=== PATIENT | female | born 1930 | race Hispanic/Latino ===

== ENCOUNTER 2017-04-22 14:51 | Inpatient (IN) | payer MEDICARE, BC ==
[2017-04-22 14:52] VITALS: PULSE 140; BMI 23.1
[2017-04-22] MEDS ORDERED: Sodium Chloride 0.9% 1,000 ML IV ONE (15:32)
--- NOTE | 2017-04-22 15:35 | C.PDOC ---
History Of Present Illness Patient is a 86 year old female, with past medical history of COPD, presents to Emergency Department for evaluation of increased congestion, cough, and yellow sputum for the past week. (+)post nasal drip. Pt uses O2 at home, mostly at night time. Pt also complaints of nausea, loss of appetite, and generalized weakness. Otherwise, denies chest pain, palpitations, fever, chills, abdominal pain, vomiting, diarrhea, headache, dizziness, lower extremity pain/swelling, or any other associated symptoms at this time. Time Seen by Provider: 04/22/17 15:24 Chief Complaint (Nursing): Shortness Of Breath History Per: Patient History/Exam Limitations: no limitations Onset/Duration Of Symptoms: Days (1 week) Current Symptoms Are (Timing): Still Present Exacerbating Factor(s): Coughing Associated Symptoms: denies: Fever, Chills, Chest Pain, Bloody Cough, Heart Racing, Leg/Calf Pain, Ankle/Leg Swelling, Dizziness, Light-headedness, Anxiety , Tingling In Hands Or Face, Musle Spasms In Hands Or Feet Recent travel outside of the [place]: No Additional History Per: Patient Past Medical History Reviewed: Historical Data, Nursing Documentation, Vital Signs Vital Signs: Last Vital Signs Temp 97.8 F 04/22/17 15:28 Pulse 58 L 04/22/17 15:28 Resp 24 04/22/17 16:50 BP 187/101 H 04/22/17 15:28 Pulse Ox 97 04/22/17 17:11 - Medical History PMH: Arthritis, COPD, Crohn's Disease, HTN, Hypercholesterolemia, Hypothyroidism , Obstructive Bowel, Chronic Kidney Disease Surgical History: Appendectomy, Cholecystectomy - [facility] Procedures FLUOROSCOPY OF LEFT JUGULAR VEINS, GUIDANCE (05/31/15) GAIT TRAINING/FUNCTIONAL AMBULATION TREATMENT (06/08/15) HOME MANAGEMENT TREATMENT (06/08/15) INSERT INFUSION DEV IN L INT JUGULAR VEIN, PERC (05/31/15) PERFORMANCE OF URINARY FILTRATION, SINGLE (05/31/15) THERAPEUTIC EXERCISE TREATMENT OF MUSCULOSK WHOLE (06/08/15) ULTRASONOGRAPHY OF LEFT JUGULAR VEINS, GUIDANCE (05/31/15) Family History: States: Unknown Family Hx - Social History Hx Tobacco Use: Yes (quit 30 years ago, 20-year history) Hx Alcohol Use: No Hx Substance Use: No - Immunization History Hx Tetanus Toxoid Vaccination: No Hx Influenza Vaccination: Yes (2013) Hx Pneumococcal Vaccination: No Review Of Systems Except As Marked, All Systems Reviewed And Found Negative. Constitutional: Positive for: Weakness. Negative for: Fever, Chills ENT: Positive for: Nose Congestion, Other (post nasal drip) Cardiovascular: Negative for: Chest Pain, Palpitations, Edema, Light Headedness Respiratory: Positive for: Cough, Shortness of Breath, Sputum Gastrointestinal: Positive for: Nausea. Negative for: Vomiting, Abdominal Pain , Diarrhea, Constipation Genitourinary: Negative for: Dysuria, Frequency, Hematuria Neurological: Negative for: Weakness, Numbness, Headache, Dizziness Physical Exam - Physical Exam Appears: Non-toxic, No Acute Distress Skin: Normal Color, Warm, Dry Head: Atraumatic, Normacephalic Eye(s): bilateral: Normal Inspection Nose: Normal Oral Mucosa: Moist Neck: Normal ROM, Supple Chest: Symmetrical Cardiovascular: Rhythm Regular, No Murmur Respiratory: Normal Breath Sounds, No Rales, No Rhonchi, No Wheezing Gastrointestinal/Abdominal: Soft, No Tenderness, No Distention, No Guarding, No Rebound Back: No CVA Tenderness Extremity: Normal ROM, No Pedal Edema Neurological/Psych: Oriented x3, Normal Speech, Normal Cognition ED Course And Treatment - Laboratory Results Result Diagrams: 04/22/17 16:47 04/22/17 16:47 Lab Interpretation: Abnormal (WBC 13.7, Na 117, Cl 83, normal BUN Cr) ECG: Interpreted By De ECG Rhythm: Sinus Rhythm (with sinus arrhythmia and left axis deviation, Anterior and inferior infarcts) ECG Interpretation: Abnormal O2 Sat by Pulse Oximetry: 97 (RA) Pulse Ox Interpretation: Normal - Radiology CXR: Interpreted by De CXR Interpretation: Yes: No Acute Disease, COPD Reevaluation Time: 17:11 Reassessment Condition: Unchanged - Physician Consult Information Time Consulting Physician Contacted: 17:11 Physician Contacted: Brodie Chong Outcome Of Conversation: Patient to be admitted for sodium replacement. Medical Decision Making Medical Decision Making: Blood work, CXR, EKG ordered and reviewed. Patient was given IV fluids. Disposition - Disposition Disposition: HOSPITALIZED Disposition Time: 17:33 Condition: FAIR - Clinical Impression Clinical Impression: Hyponatremia - Scribe Statement The provider has reviewed the documentation as recorded by the David Velazquez All medical record entries made by the Scribe were at my direction and personally dictated by me. I have reviewed the chart and agree that the record accurately reflects my personal performance of the history, physical exam, medical decision making, and the department course for this patient. I have also personally directed, reviewed, and agree with the discharge instructions and disposition.
[2017-04-22 16:50] LABS: BASO # 0.1 K/uL (0.0-0.2); BASO % 0.6 % (0.0-2.0); EOS # 0.1 K/uL (0.0-0.7); EOS % 0.5 % (0.0-4.0); HEMATOCRIT 34.1 % (34.0-47.0); LYMPH # 1.1 K/uL (1.0-4.3); MEAN CELL VOLUME 85.7 fL (81.0-99.0); MEAN CORPUSCULAR HEMOGLOBIN 28.6 pg (27.0-31.0); MEAN CORPUSCULAR HGB CONC 33.4 g/dL (33.0-37.0); MEAN PLATELET VOLUME 7.8 fL (7.2-11.7); MONO # 0.8 K/uL (0.0-0.8); MONO % 5.6 % (0.0-10.0); NRBC % 0.1 % (0.0-2.0); PLATELET COUNT 422 K/uL (130-400); RED CELL DISTRIBUTION WIDTH 14.9 % (11.5-14.5); WHITE BLOOD COUNT 13.7 K/uL (4.8-10.8)
[2017-04-22 17:00] LABS: CHLORIDE 83 mmol/L (98-107)
[2017-04-22 17:01] LABS: POTASSIUM 4.2 mmol/L (3.6-5.2)
[2017-04-22 17:03] LABS: ALB/GLOB RATIO 1.3 (1.0-2.1); AST/SGOT 23 U/L (14-36); BILIRUBIN,TOTAL 0.6 mg/dL (0.2-1.3); CARBON DIOXIDE 22 mmol/L (22-30); GFR AFRICAN-AMERICAN > 60; TOTAL PROTEIN 7.4 g/dL (6.3-8.3)
[2017-04-22 17:04] LABS: ALKALINE PHOSPHATASE 95 U/L (38-126); ALT/SGPT 24 U/L (9-52); BLOOD UREA NITROGEN 17 mg/dL (7-17); CALCIUM 8.9 mg/dl (8.6-10.4); GLUCOSE,RANDOM 89 mg/dL (65-105)
[2017-04-22 17:07] LABS: SODIUM 117 mmol/L (132-148)
--- NOTE | 2017-04-22 17:59 | RAD ---
PROCEDURE: CHEST RADIOGRAPH, 1 VIEW HISTORY: SOB COMPARISON: Comparison made with chest radiograph dated 05/21/2013 FINDINGS: LUNGS: No acute consolidation. Mild biapical pleural thickening PLEURA: No pneumothorax or pleural fluid seen. CARDIOVASCULAR: Cardiomegaly. OSSEOUS STRUCTURES: No significant abnormalities. VISUALIZED UPPER ABDOMEN: Normal. OTHER FINDINGS: None. IMPRESSION: No acute consolidation. Cardiomegaly.
[2017-04-22 18:46] LABS: LARGE PLATELETS PRESENT; NEUTROPHIL 84 % (50-75); TOTAL CELLS COUNTED 100
[2017-04-22] MEDS ORDERED: Sodium Chloride 0.9% 1,000 ML IV SCH (22:15)
--- NOTE | 2017-04-22 22:57 | CP.PCM.HP ---
History of Present Illness - History of Present Illness History of Present Illness: Patient is a 86 year old female, with past medical history of COPD, presents to Emergency Department for evaluation of increased congestion, cough, and yellow sputum for the past week. (+)post nasal drip. Pt uses O2 at home, mostly at night time. Pt also complaints of nausea, loss of appetite, and generalized weakness. Otherwise, denies chest pain, palpitations, fever, chills, abdominal pain, vomiting, diarrhea, headache, dizziness, lower extremity pain/swelling, or any other associated symptoms at this time. Present on Admission - Present on Admission Any Indicators Present on Admission: No Past Patient History - Past Medical History & Family History Past Medical History?: Yes - Past Social History Smoking Status: Former Smoker - CARDIAC Hx Hypercholesterolemia: Yes Hx Hypertension: Yes - PULMONARY Hx Chronic Obstructive Pulmonary Disease (COPD): Yes - NEUROLOGICAL Hx Neurological Disorder: No - HEENT Hx HEENT Problems: No - RENAL Hx Chronic Kidney Disease: Yes - ENDOCRINE/METABOLIC Hx Hypothyroidism: Yes - HEMATOLOGICAL/ONCOLOGICAL Hx Blood Disorders: No - INTEGUMENTARY Hx Dermatological Problems: No - MUSCULOSKELETAL/RHEUMATOLOGICAL Hx Arthritis: Yes - GASTROINTESTINAL Hx Crohn's Disease: Yes - GENITOURINARY/GYNECOLOGICAL Hx Genitourinary Disorders: No - PSYCHIATRIC Hx Substance Use: No - SURGICAL HISTORY Hx Appendectomy: Yes Hx Cholecystectomy: Yes - ANESTHESIA Hx Anesthesia: Yes Hx Anesthesia Reactions: No Hx Malignant Hyperthermia: No Meds Allergies/Adverse Reactions: Allergies Allergy/AdvReac Type Severity Reaction Status Date / Time No Known Allergies Allergy Verified 04/22/17 15:32 Results - Vital Signs Recent Vital Signs: Last Vital Signs Temp 98.1 F 04/22/17 19:30 Pulse 64 04/22/17 21:45 Resp 20 04/22/17 21:45 BP 138/77 04/22/17 21:45 Pulse Ox 97 04/22/17 21:45 - Labs Result Diagrams: 04/23/17 07:12 04/23/17 16:55 Labs: Laboratory Results - last 24 hr 04/22/17 04/22/17 16:47 16:47 WBC 13.7 H RBC 3.98 Hgb 11.4 Hct 34.1 MCV 85.7 D MCH 28.6 MCHC 33.4 RDW 14.9 H Plt Count 422 H MPV 7.8 Neut % (Auto) 85.3 H Lymph % (Auto) 8.0 L Walton % (Auto) 5.6 Eos % (Auto) 0.5 Baso % (Auto) 0.6 Neut # 11.7 H Lymph # 1.1 Walton # 0.8 Eos # 0.1 Baso # 0.1 Neutrophils % (Manual) 84 H Lymphocytes % (Manual) 10 L Monocytes % (Manual) 6 Platelet Estimate Slightly increased H Large Platelets Present Sodium 117 L* Potassium 4.2 Chloride 83 L Carbon Dioxide 22 Anion Gap 16 BUN 17 Creatinine 0.8 Est GFR ( Amer) > 60 Est GFR (Non-Af Amer) > 60 Random Glucose 89 Calcium 8.9 Total Bilirubin 0.6 AST 23 ALT 24 Alkaline Phosphatase 95 Troponin I < 0.0120 NT-Pro-B Natriuret Pep 934 H Total Protein 7.4 Albumin 4.1 Globulin 3.3 Albumin/Globulin Ratio 1.3
[2017-04-23] MEDS: Levothyroxine 50 MCG TAB PO SCH (05:33)
[2017-04-23 07:19] LABS: HEMATOCRIT 30.9 % (34.0-47.0); MEAN CELL VOLUME 86.2 fL (81.0-99.0); MEAN CORPUSCULAR HEMOGLOBIN 29.2 pg (27.0-31.0); MEAN CORPUSCULAR HGB CONC 33.9 g/dL (33.0-37.0); MEAN PLATELET VOLUME 7.8 fL (7.2-11.7); RED CELL DISTRIBUTION WIDTH 14.7 % (11.5-14.5); WHITE BLOOD COUNT 11.2 K/uL (4.8-10.8)
[2017-04-23 08:01] LABS: CHLORIDE 86 mmol/L (98-107); POTASSIUM 3.8 mmol/L (3.6-5.2)
[2017-04-23 08:04] LABS: BLOOD UREA NITROGEN 14 mg/dL (7-17); CARBON DIOXIDE 24 mmol/L (22-30); GFR AFRICAN-AMERICAN > 60; GLUCOSE,RANDOM 84 mg/dL (65-105)
[2017-04-23 08:05] LABS: CALCIUM 8.1 mg/dl (8.6-10.4)
[2017-04-23 08:08] LABS: SODIUM 118 mmol/L (132-148)
[2017-04-23] MEDS: Enoxaparin 40 mg Syringe SC SCH (09:20)
[2017-04-23] MEDS: Pantoprazole 40 mg EC Tab PO SCH (09:21)
[2017-04-23] MEDS: oxyCODONE 5 mg Immediate Release Tab PO PRN ×2 (11:07→17:32)
[2017-04-23] MEDS: Sodium Chloride 0.9% 1,000 ML IV SCH ×2 (11:08→19:16)
[2017-04-23 11:59] LABS: URIC ACID 5.2 mg/dL (2.2-7.5)
[2017-04-23 12:31] LABS: THYROID STIMULATING HORMONE 11.8 mIU/L (0.46-4.68)
[2017-04-23 17:19] LABS: CHLORIDE 87 mmol/L (98-107); POTASSIUM 3.7 mmol/L (3.6-5.2)
[2017-04-23 17:22] LABS: BLOOD UREA NITROGEN 12 mg/dL (7-17); CARBON DIOXIDE 21 mmol/L (22-30); GFR AFRICAN-AMERICAN > 60
[2017-04-23 17:23] LABS: GLUCOSE,RANDOM 117 mg/dL (65-105)
[2017-04-23 17:27] LABS: SODIUM 117 mmol/L (132-148)
[2017-04-23] MEDS ORDERED: Tolvaptan 15 MG TAB PO ONE (18:29)
--- NOTE | 2017-04-23 21:08 | CP.PCM.PN ---
Subjective - Date & Time of Evaluation Date of Evaluation: 04/23/17 Time of Evaluation: 15:25 - Subjective Subjective: CC: dizzness, weakness, imabalance x 2 weeks HPI: Pt is a elderly white female with h/o HTN, Hyperlipidemia with h/o skipd beats, fllowed up by her PMD in [facility], she take multiple HTN medications, seen and evalauted at bedside Objective - Vital Signs/Intake and Output Vital Signs (last 24 hours): Temp Pulse Resp BP Pulse Ox 98.1 F 62 20 128/63 95 04/23/17 15:16 04/23/17 19:20 04/23/17 15:16 04/23/17 15:16 04/23/17 15:16 - Medications Medications: Current Medications Acetaminophen (Tylenol 325mg Tab) 650 mg PO Q4H PRN PRN Reason: Pain, MILD (1-3) Enoxaparin Sodium (Lovenox) 40 mg SC DAILY [facility] Last Admin: 04/23/17 09:20 Dose: 40 mg Sodium Chloride (Sodium Chloride 0.9%) 1,000 mls @ 125 mls/hr IV .Q8H [facility] Last Admin: 04/23/17 19:16 Dose: 125 mls/hr Levothyroxine Sodium (Synthroid) 50 mcg PO DAILY@0630 [facility] Last Admin: 04/23/17 05:33 Dose: 50 mcg Losartan Potassium (Cozaar) 100 mg PO DAILY [facility] Last Admin: 04/23/17 11:06 Dose: 100 mg Mesalamine (Delzicol) 800 mg PO TID [facility] Last Admin: 04/23/17 17:29 Dose: 800 mg Metoprolol Tartrate (Lopressor) 25 mg PO Q12 [facility] Last Admin: 04/23/17 09:21 Dose: 25 mg Oxycodone HCl (Oxycodone Immediate Release Tab) 5 mg PO Q6 PRN PRN Reason: Pain, moderate (4-7) Last Admin: 04/23/17 17:32 Dose: 5 mg Pantoprazole Sodium (Protonix Ec Tab) 40 mg PO DAILY [facility] Last Admin: 04/23/17 09:21 Dose: 40 mg Rosuvastatin Calcium (Crestor) 10 mg PO HS [facility] Sertraline HCl (Zoloft) 50 mg PO DAILY [facility] Last Admin: 04/23/17 09:20 Dose: 50 mg - Labs Labs: 04/23/17 07:12 04/23/17 16:55 - Constitutional Appears: No Acute Distress - Head Exam Head Exam: ATRAUMATIC, NORMAL INSPECTION, NORMOCEPHALIC - Eye Exam Eye Exam: EOMI, Normal appearance, PERRL Pupil Exam: NORMAL ACCOMODATION, PERRL - Neck Exam Neck Exam: Full ROM, Normal Inspection. absent: Lymphadenopathy - Cardiovascular Exam Cardiovascular Exam: REGULAR RHYTHM, +S1, +S2. absent: Murmur - GI/Abdominal Exam GI & Abdominal Exam: Soft, Normal Bowel Sounds. absent: Tenderness - Neurological Exam Neurological Exam: Alert, Awake, CN II-XII Intact, Normal Gait, Oriented x3 - Psychiatric Exam Psychiatric exam: Normal Affect, Normal Mood - Skin Skin Exam: Erythema, Rash Assessment and Plan (1) Hyponatremia Assessment & Plan: diuretic induced/ SIADH Status: Acute (2) Lumbar radiculopathy Status: Acute (3) Laceration of leg not thigh, left Status: Acute (4) Osteoarthritis Status: Acute (5) Dizziness Status: Acute
[2017-04-23 23:24] LABS: CHLORIDE 91 mmol/L (98-107); POTASSIUM 3.6 mmol/L (3.6-5.2); SODIUM 121 mmol/L (132-148)
[2017-04-23 23:26] LABS: GFR AFRICAN-AMERICAN > 60
[2017-04-23 23:27] LABS: BLOOD UREA NITROGEN 10 mg/dL (7-17); CARBON DIOXIDE 22 mmol/L (22-30); GLUCOSE,RANDOM 90 mg/dL (65-105)
[2017-04-24] MEDS: Sodium Chloride 0.9% 1,000 ML IV SCH ×2 (03:08→10:20)
[2017-04-24] MEDS: Levothyroxine 50 MCG TAB PO SCH (05:32)
[2017-04-24 08:27] LABS: CHLORIDE 98 mmol/L (98-107); POTASSIUM 3.8 mmol/L (3.6-5.2); SODIUM 127 mmol/L (132-148)
[2017-04-24 08:30] LABS: BLOOD UREA NITROGEN 9 mg/dL (7-17); CALCIUM 8.2 mg/dl (8.6-10.4); CARBON DIOXIDE 22 mmol/L (22-30); GFR AFRICAN-AMERICAN > 60; GLUCOSE,RANDOM 81 mg/dL (65-105)
[2017-04-24] MEDS: Pantoprazole 40 mg EC Tab PO SCH (10:19)
[2017-04-24] MEDS: Enoxaparin 40 mg Syringe SC SCH (10:19)
[2017-04-24] MEDS: oxyCODONE 5 mg Immediate Release Tab PO PRN ×2 (10:24→16:43)
[2017-04-24] MEDS ORDERED: Sodium Chloride 0.45% 1,000 ML IV SCH (11:00)
--- NOTE | 2017-04-24 12:51 | CP.PCM.CON ---
History of Present Illness - History of Present Illness History of Present Illness: pt is seen and examined, full consult is dictated #[id number] 1. Hyponatremia sec to siadh sec to HCTZ 2. htn 3. hypothyroidism 4. Hyperlipidemia 5. ?irregular heart beat/ cardiac arrythmias serum na is improving, s/p tolvaptan 15 mg po x 1 dose yesterday changed ivf to 1/2 ns at 70 ml/hr bmp this evening Past Patient History - Past Medical History & Family History Past Medical History?: Yes - Past Social History Smoking Status: Former Smoker - CARDIAC Hx Hypercholesterolemia: Yes Hx Hypertension: Yes - PULMONARY Hx Chronic Obstructive Pulmonary Disease (COPD): Yes - NEUROLOGICAL Hx Neurological Disorder: No - HEENT Hx HEENT Problems: No - RENAL Hx Chronic Kidney Disease: Yes - ENDOCRINE/METABOLIC Hx Hypothyroidism: Yes - HEMATOLOGICAL/ONCOLOGICAL Hx Blood Disorders: No - INTEGUMENTARY Hx Dermatological Problems: No - MUSCULOSKELETAL/RHEUMATOLOGICAL Hx Arthritis: Yes - GASTROINTESTINAL Hx Crohn's Disease: Yes - GENITOURINARY/GYNECOLOGICAL Hx Genitourinary Disorders: No - PSYCHIATRIC Hx Substance Use: No - SURGICAL HISTORY Hx Appendectomy: Yes Hx Cholecystectomy: Yes - ANESTHESIA Hx Anesthesia: Yes Hx Anesthesia Reactions: No Hx Malignant Hyperthermia: No Meds Allergies/Adverse Reactions: Allergies Allergy/AdvReac Type Severity Reaction Status Date / Time No Known Allergies Allergy Verified 04/22/17 15:32 - Medications Medications: Current Medications Acetaminophen (Tylenol 325mg Tab) 650 mg PO Q4H PRN PRN Reason: Pain, MILD (1-3) Enoxaparin Sodium (Lovenox) 40 mg SC DAILY [facility] Last Admin: 04/24/17 10:19 Dose: 40 mg Sodium Chloride (Sodium Chloride 0.45%) 1,000 mls @ 70 mls/hr IV .[id number] [facility] Last Admin: 04/24/17 10:59 Dose: 70 mls/hr Levothyroxine Sodium (Synthroid) 50 mcg PO DAILY@0630 [facility] Last Admin: 04/24/17 05:32 Dose: 50 mcg Losartan Potassium (Cozaar) 100 mg PO DAILY [facility] Last Admin: 04/24/17 10:19 Dose: 100 mg Mesalamine (Delzicol) 800 mg PO TID [facility] Last Admin: 04/24/17 10:19 Dose: 800 mg Metoprolol Tartrate (Lopressor) 25 mg PO Q12 [facility] Last Admin: 04/24/17 10:20 Dose: 25 mg Oxycodone HCl (Oxycodone Immediate Release Tab) 5 mg PO Q6 PRN PRN Reason: Pain, moderate (4-7) Last Admin: 04/24/17 10:24 Dose: 5 mg Pantoprazole Sodium (Protonix Ec Tab) 40 mg PO DAILY [facility] Last Admin: 04/24/17 10:19 Dose: 40 mg Rosuvastatin Calcium (Crestor) 10 mg PO HS [facility] Last Admin: 04/23/17 22:18 Dose: 10 mg Sertraline HCl (Zoloft) 50 mg PO DAILY [facility] Last Admin: 04/24/17 10:19 Dose: 50 mg Results - Vital Signs Recent Vital Signs: Last Vital Signs Temp 98.0 F 04/24/17 09:05 Pulse 71 04/24/17 09:05 Resp 18 04/24/17 09:05 BP 165/88 H 04/24/17 10:20 Pulse Ox 100 04/24/17 09:05 - Labs Result Diagrams: 04/23/17 07:12 04/24/17 17:04 Labs: Laboratory Results - last 24 hr 04/23/17 04/23/17 04/23/17 16:55 19:55 23:13 Sodium 117 L* 121 L Potassium 3.7 3.6 Chloride 87 L 91 L Carbon Dioxide 21 L 22 Anion Gap 13 12 BUN 12 10 Creatinine 0.7 0.7 Est GFR ( Amer) > 60 > 60 Est GFR (Non-Af Amer) > 60 > 60 Random Glucose 117 H 90 Calcium 8.0 L 8.0 L Urine Osmolality 319 Ur Random Sodium 114 04/24/17 07:16 Sodium 127 L Potassium 3.8 Chloride 98 Carbon Dioxide 22 Anion Gap 11 BUN 9 Creatinine 0.7 Est GFR ( Amer) > 60 Est GFR (Non-Af Amer) > 60 Random Glucose 81 Calcium 8.2 L Urine Osmolality Ur Random Sodium
--- NOTE | 2017-04-24 12:57 | CARD ---
APPROVED REPORT EKG Measurement Heart [id number] <Conclusion> Sinus rhythm with marked sinus arrhythmia Left axis deviation Inferior infarct, age undetermined Anterior infarct, age undetermined Abnormal ECG
[2017-04-24 17:26] LABS: CHLORIDE 99 mmol/L (98-107); POTASSIUM 3.8 mmol/L (3.6-5.2); SODIUM 132 mmol/L (132-148)
[2017-04-24 17:29] LABS: BLOOD UREA NITROGEN 10 mg/dL (7-17); CARBON DIOXIDE 25 mmol/L (22-30); GFR AFRICAN-AMERICAN > 60; GLUCOSE,RANDOM 101 mg/dL (65-105)
[2017-04-24 17:30] LABS: CALCIUM 8.5 mg/dl (8.6-10.4)
--- NOTE | 2017-04-24 23:29 | CP.PCM.PN ---
Subjective - Date & Time of Evaluation Date of Evaluation: 04/24/17 Time of Evaluation: 18:00 - Subjective Subjective: pt seen and exained by me today, Na is up, feeling better Objective - Vital Signs/Intake and Output Vital Signs (last 24 hours): Temp Pulse Resp BP Pulse Ox 98.2 F 61 20 110/80 98 04/24/17 15:57 04/24/17 16:00 04/24/17 15:57 04/24/17 21:23 04/24/17 15:57 Intake and Output: 04/24/17 04/25/17 18:59 06:59 Intake Total 1740 980 Balance 1740 980 - Medications Medications: Current Medications Acetaminophen (Tylenol 325mg Tab) 650 mg PO Q4H PRN PRN Reason: Pain, MILD (1-3) Enoxaparin Sodium (Lovenox) 40 mg SC DAILY [facility] Last Admin: 04/24/17 10:19 Dose: 40 mg Dextrose (Dextrose 5% In Water 1000 Ml) 1,000 mls @ 70 mls/hr IV .[id number] [facility] Levothyroxine Sodium (Synthroid) 50 mcg PO DAILY@0630 [facility] Last Admin: 04/24/17 05:32 Dose: 50 mcg Losartan Potassium (Cozaar) 100 mg PO DAILY [facility] Last Admin: 04/24/17 10:19 Dose: 100 mg Mesalamine (Delzicol) 800 mg PO TID [facility] Last Admin: 04/24/17 17:51 Dose: 800 mg Metoprolol Tartrate (Lopressor) 25 mg PO Q12 [facility] Last Admin: 04/24/17 21:23 Dose: 25 mg Oxycodone HCl (Oxycodone Immediate Release Tab) 5 mg PO Q6 PRN PRN Reason: Pain, moderate (4-7) Last Admin: 04/24/17 16:43 Dose: 5 mg Pantoprazole Sodium (Protonix Ec Tab) 40 mg PO DAILY [facility] Last Admin: 04/24/17 10:19 Dose: 40 mg Rosuvastatin Calcium (Crestor) 10 mg PO HS [facility] Last Admin: 04/24/17 21:22 Dose: 10 mg Sertraline HCl (Zoloft) 50 mg PO DAILY [facility] Last Admin: 04/24/17 10:19 Dose: 50 mg - Labs Labs: 04/23/17 07:12 04/24/17 17:04 - Constitutional Appears: No Acute Distress - Head Exam Head Exam: ATRAUMATIC, NORMAL INSPECTION, NORMOCEPHALIC - Respiratory Exam Respiratory Exam: Clear to Ausculation Bilateral, NORMAL BREATHING PATTERN - Cardiovascular Exam Cardiovascular Exam: REGULAR RHYTHM, +S1, +S2. absent: Murmur - GI/Abdominal Exam GI & Abdominal Exam: Soft, Normal Bowel Sounds. absent: Tenderness Assessment and Plan (1) Hyponatremia Assessment & Plan: 1. Hyponatremia sec to siadh sec to HCTZ serum na is improving, s/p tolvaptan 15 mg po x 1 dose yesterday changed ivf to 1/2 ns at 70 ml/hr bmp this evening Status: Acute (2) Lumbar radiculopathy Status: Acute (3) Laceration of leg not thigh, left Status: Acute (4) Osteoarthritis Status: Acute (5) Dizziness Status: Acute
--- NOTE | 2017-04-25 04:02 | CON ---
RENAL CONSULTATION LOCATION: The patient is located in room 656, bed B. REQUESTING PHYSICIAN: Dr. Brodie Chong. REASON FOR FOLLOWUP: Hyponatremia symptomatic and for further evaluation. HISTORY OF PRESENT ILLNESS: The patient is an 86-year-old very pleasant elderly female with past medical history significant for arthritis, COPD, Crohn's disease, hypertension, hyperlipidemia, hypothyroidism, status post abdominal surgery secondary to Crohn's disease and history of skipped beats, was admitted with chief complaint of dizziness, weakness for 1 week and also complains feeling cough associated with white sputum for almost 1 week and the patient was found to have severe hyponatremia and admitted to the hospital for further evaluation. The patient is not in acute distress. The patient was found to have low serum sodium, low serum osmolality and high urine osmolality with high urine sodium and the patient was given 1 dose of tolvaptan 15 mg yesterday and subsequently started on normal saline 125 mL/hour and change it to half normal saline this morning at 70 mL/hour. The patient is feeling much better, not in acute distress. Denies any chest pain, palpitation. Denies any fever. Denies any nausea, vomiting, diarrhea. Denies any abdominal pain. Denies any dysuria, frequency. Denies any edema of the legs. PAST MEDICAL HISTORY: Her past medical history is significant for arthritis, COPD, Crohn's disease, hypertension, hyperlipidemia, hypothyroidism, and skipped beats. PAST SURGICAL HISTORY: History of cholecystectomy and also colon surgery. ALLERGIES: NO KNOWN DRUG ALLERGIES. SOCIAL HISTORY: Denies any smoking. No alcohol or drugs. PERSONAL HISTORY: She is a , she has 1 son living and 1 and she has 2 grandchildren. CURRENT MEDICATIONS: Include as follows; Cozaar 100 mg p.o. daily, Crestor 10 mg at bedtime and mesalamine 800 mg p.o. t.i.d. and IV fluids half normal saline at 70 mL/hour and metoprolol 25 mg p.o. q.12 hours, Lovenox 40 mg subcu daily and oxycodone 5 mg p.o. q.6 hours p.r.n., Protonix 40 mg p.o. daily, Synthroid 50 mcg daily, acetaminophen, Zoloft 50 mg p.o. daily. REVIEW OF SYSTEMS: Significant for generalized weakness, dizziness, cough associated with white sputum and also significant for hyponatremia. All other review of systems are reviewed and are negative. PHYSICAL EXAMINATION: VITAL SIGNS: Blood pressure 165/88, pulse 65, respirations 20, temperature 98.2, saturations 98%, height 5 feet 5 inches, and weight is 125 pounds. GENERAL: The patient is an 86-year-old elderly female, moderately built, moderately nourished, not in acute distress. HEENT: Pupils normal, reactive to light and accommodation. Conjunctiva pink. Sclerae anicteric. Tongue is moist. Trachea is midline. LUNGS: Symmetric on both sides. Bilateral breath sounds present. Clear on auscultation. CARDIOVASCULAR SYSTEM: [place] at the fifth intercostal space of intermediate midclavicular line. S1 and S2 audible. No murmur or gallop. ABDOMEN: Normal in appearance, soft, tympanic. No guarding. No rigidity. No hepatosplenomegaly. No abdominal bruits. CENTRAL NERVOUS SYSTEM: The patient is alert, awake, oriented x3. Nonfocal neuro examination. Cranial nerves II through XII grossly intact. Sensory and motor system is within normal limits. EXTREMITIES: No cyanosis. No clubbing. No edema. LABORATORY DATA: Include as follows: As of 04/22/2017; WBC 13.7, hemoglobin 11.4, hematocrit 34.1 and platelets 422. Neutrophils 84, lymphs 10, monos 6. Sodium 117, potassium 4.2, chloride 83, CO2 of 22, BUN 17, creatinine 0.8, glucose 89, calcium 8.9, total bilirubin 0.6. AST 23, ALT 24, alkaline phosphatase is 95. Troponin 0.012 and proBNP 934, total protein 7.4, albumin is 4.1 and TSH is 11.8. As of 04/23/2017, serum sodium is 118 at 7:12 a.m. As of 04/23/2017 at 1655 hours; sodium is 117, BUN 12, creatinine 0.7 and serum osmolality is 255 and serum uric acid level is 5.2. As of 04/23/2017 at 2313 hours; serum sodium is 121 and BUN and creatinine 10 and 0.7 and TSH is 11.8. As of 04/24/2017; sodium is 127, potassium 3.8, chloride 198, CO2 of 22, BUN 9, creatinine 0.7 and anion gap is 11, glucose 81, calcium 8.2. SUMMARY: The patient is an 86-year-old elderly female with urine osmolality 319 and urine sodium is 114 as of 04/23/2017 with serum sodium 117 and urine serum osmolality 252, uric acid 5.2. 1. 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 x1 dose and also IV fluids normal saline at 125 mL/hour unit this morning and switch it to half normal saline at 70 mL/hour. Serum sodium is improving nicely. The goal is about 8 to 10 mEq for 24 hour period. 2. Hypertension. 3. Chronic obstructive pulmonary disease. 4. Hypothyroidism. Continue Synthroid and continue to monitor BMP q.12 hours. Repeat BMP this evening. We will follow with you. Thank you for allowing me to participating in your patient's care. Darío Chambers MD
[2017-04-25] MEDS: Levothyroxine 50 MCG TAB PO SCH (05:42)
[2017-04-25 06:28] LABS: CHLORIDE URINE 110 mmol/L (32-290)
[2017-04-25 06:42] LABS: CHLORIDE 99 mmol/L (98-107); POTASSIUM 3.7 mmol/L (3.6-5.2); SODIUM 132 mmol/L (132-148)
[2017-04-25 06:45] LABS: GFR AFRICAN-AMERICAN > 60
[2017-04-25 06:46] LABS: BLOOD UREA NITROGEN 9 mg/dL (7-17); CALCIUM 8.7 mg/dl (8.6-10.4); CARBON DIOXIDE 25 mmol/L (22-30); GLUCOSE,RANDOM 109 mg/dL (65-105)
--- NOTE | 2017-04-25 09:11 | CP.PCM.PN ---
Subjective - Date & Time of Evaluation Date of Evaluation: 04/25/17 Time of Evaluation: 09:10 - Subjective Subjective: pt is seen and examined, follow up consult is dictated #[id number] serum na is stable, dont raise na more erna 15 meq in 48 hrs c/w d5w at 70 ml/hr today and the d/c in am Objective - Vital Signs/Intake and Output Vital Signs (last 24 hours): Temp Pulse Resp BP Pulse Ox 98.1 F 59 L 20 155/74 H 95 04/25/17 07:55 04/25/17 07:55 04/25/17 07:55 04/25/17 07:55 04/25/17 07:55 Intake and Output: 04/25/17 04/25/17 06:59 18:59 Intake Total 980 Balance 980 - Medications Medications: Current Medications Acetaminophen (Tylenol 325mg Tab) 650 mg PO Q4H PRN PRN Reason: Pain, MILD (1-3) Enoxaparin Sodium (Lovenox) 40 mg SC DAILY [facility] Last Admin: 04/24/17 10:19 Dose: 40 mg Dextrose (Dextrose 5% In Water 1000 Ml) 1,000 mls @ 70 mls/hr IV .[id number] [facility] Last Admin: 04/25/17 00:13 Dose: 70 mls/hr Levothyroxine Sodium (Synthroid) 50 mcg PO DAILY@0630 [facility] Last Admin: 04/25/17 05:42 Dose: 50 mcg Losartan Potassium (Cozaar) 100 mg PO DAILY [facility] Last Admin: 04/24/17 10:19 Dose: 100 mg Mesalamine (Delzicol) 800 mg PO TID [facility] Last Admin: 04/24/17 17:51 Dose: 800 mg Metoprolol Tartrate (Lopressor) 25 mg PO Q12 [facility] Last Admin: 04/24/17 21:23 Dose: 25 mg Oxycodone HCl (Oxycodone Immediate Release Tab) 5 mg PO Q6 PRN PRN Reason: Pain, moderate (4-7) Last Admin: 04/24/17 16:43 Dose: 5 mg Pantoprazole Sodium (Protonix Ec Tab) 40 mg PO DAILY [facility] Last Admin: 04/24/17 10:19 Dose: 40 mg Rosuvastatin Calcium (Crestor) 10 mg PO HS [facility] Last Admin: 04/24/17 21:22 Dose: 10 mg Sertraline HCl (Zoloft) 50 mg PO DAILY [facility] Last Admin: 04/24/17 10:19 Dose: 50 mg - Labs Labs: 04/23/17 07:12 04/25/17 06:08
[2017-04-25] MEDS: Pantoprazole 40 mg EC Tab PO SCH (10:32)
[2017-04-25] MEDS: Enoxaparin 40 mg Syringe SC SCH (10:36)
[2017-04-25] MEDS: oxyCODONE 5 mg Immediate Release Tab PO PRN (10:38)
--- NOTE | 2017-04-25 22:42 | CP.PCM.PN ---
Subjective - Date & Time of Evaluation Date of Evaluation: 04/25/17 Time of Evaluation: 20:00 - Subjective Subjective: Pt is stable, c/o lower back pain, Na is 132, we need to observe her for 1 more days, we will adjust her medication and might need to D/C diuretics Objective - Vital Signs/Intake and Output Vital Signs (last 24 hours): Temp Pulse Resp BP Pulse Ox 98.1 F 77 20 158/82 H 96 04/25/17 15:05 04/25/17 15:05 04/25/17 15:05 04/25/17 21:17 04/25/17 15:05 Intake and Output: 04/25/17 04/26/17 18:59 06:59 Intake Total 1300 1040 Balance 1300 1040 - Medications Medications: Current Medications Acetaminophen (Tylenol 325mg Tab) 650 mg PO Q4H PRN PRN Reason: Pain, MILD (1-3) Enoxaparin Sodium (Lovenox) 40 mg SC DAILY [facility] Last Admin: 04/25/17 10:36 Dose: 40 mg Levothyroxine Sodium (Synthroid) 50 mcg PO DAILY@0630 [facility] Last Admin: 04/25/17 05:42 Dose: 50 mcg Losartan Potassium (Cozaar) 100 mg PO DAILY [facility] Last Admin: 04/25/17 10:28 Dose: 100 mg Mesalamine (Delzicol) 800 mg PO TID [facility] Last Admin: 04/25/17 19:08 Dose: 800 mg Metoprolol Tartrate (Lopressor) 25 mg PO Q12 [facility] Last Admin: 04/25/17 21:17 Dose: 25 mg Oxycodone HCl (Oxycodone Immediate Release Tab) 5 mg PO Q6 PRN PRN Reason: Pain, moderate (4-7) Last Admin: 04/25/17 10:38 Dose: 5 mg Pantoprazole Sodium (Protonix Ec Tab) 40 mg PO DAILY [facility] Last Admin: 04/25/17 10:32 Dose: 40 mg Rosuvastatin Calcium (Crestor) 10 mg PO HS [facility] Last Admin: 04/25/17 21:17 Dose: 10 mg Sertraline HCl (Zoloft) 50 mg PO DAILY [facility] Last Admin: 04/25/17 10:32 Dose: 50 mg - Labs Labs: 04/23/17 07:12 04/25/17 06:08 - Constitutional Appears: No Acute Distress - Head Exam Head Exam: ATRAUMATIC, NORMAL INSPECTION, NORMOCEPHALIC - Eye Exam Eye Exam: EOMI, Normal appearance, PERRL Pupil Exam: NORMAL ACCOMODATION, PERRL - Neck Exam Neck Exam: Full ROM, Normal Inspection. absent: Lymphadenopathy - Respiratory Exam Respiratory Exam: Clear to Ausculation Bilateral, NORMAL BREATHING PATTERN - Cardiovascular Exam Cardiovascular Exam: REGULAR RHYTHM, +S1, +S2. absent: Murmur - GI/Abdominal Exam GI & Abdominal Exam: Soft, Normal Bowel Sounds. absent: Tenderness - Neurological Exam Neurological Exam: Alert, Awake, CN II-XII Intact, Normal Gait, Oriented x3 - Psychiatric Exam Psychiatric exam: Normal Affect, Normal Mood Assessment and Plan (1) Hyponatremia Status: Acute (2) Lumbar radiculopathy Status: Acute (3) Laceration of leg not thigh, left Status: Acute (4) Osteoarthritis Status: Acute (5) Dizziness Status: Acute
--- NOTE | 2017-04-26 00:03 | PN ---
DATE: LOCATION: The patient is located in room number 656, bed B. REQUESTED BY: Brodie Chong MD REASON FOR FOLLOWUP: Hyponatremia, for further evaluation. SUBJECTIVE: Mrs. Méndez is an 86-year-old elderly female with a history of hypertension, Crohn's disease and hypothyroidism who was admitted with generalized weakness and dizziness and also cough associated with white sputum. The patient was found to have severe hyponatremia. 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 The patient is feeling much better this morning and denies any complaints. No chest pain. No palpitation. No fever. No cough. No abdominal pain and no nausea, vomiting or diarrhea. The patient is eager to go home this morning. PHYSICAL EXAMINATION GENERAL: Mrs. Méndez is an 86-year-old elderly female, moderately built and moderately nourished, not in acute distress. VITAL SIGNS: As follows: Blood pressure this morning 155/74, pulse of 59, respirations of 20, temperature of 98.1 and and saturation of 95%. Height 5 feet 5 inches and weight is 125 pounds. HEENT: Pupils are normal and reactive to light and accommodation. Conjunctivae are pink. Sclerae are anicteric. Tongue is moist. Trachea is midline. LUNGS: Symmetric on both sides. Bilateral breath sounds present. Clear on auscultation. CARDIOVASCULAR SYSTEM: [place] at the fifth intercostal space, midclavicular line. S1 and S2 audible. No murmur or gallop. ABDOMEN: Normal in appearance, soft, and tympanic. No guarding. No rigidity. No hepatosplenomegaly. CENTRAL NERVOUS SYSTEM: The patient is alert, awake and oriented x3. Nonfocal neuro examination. Cranial nerves II through XII grossly intact. Deep tendon reflexes are normal. EXTREMITIES: No cyanosis. No clubbing. No edema. SKIN: Skin turgor is normal. CURRENT MEDICATIONS: Include as follows: This morning, Losartan 100 mg p.o. daily, Crestor 10 mg at bedtime, mesalamine 800 mg p.o. t.i.d., IV fluids D5W at 70 mL per hour, metoprolol 25 mg p.o. q.12 hours, Lovenox 40 mg subq daily, oxycodone 5 mg p.o. q.6 hours, Protonix 40 mg p.o. daily, Synthroid 50 mcg p.o. daily, Tylenol and Zoloft 50 mg p.o. daily. LABORATORY DATA: Include as follows: This morning, sodium of 132, potassium of 3.7, chloride of 99, CO2 of 25, BUN of 9, creatinine of 0.7, glucose of 109 and calcium of 8.7 as of 04/25/2017. ASSESSMENT AND PLAN: In summary, Mrs. Méndez is an 86-year-old elderly female with hypertension, hyperlipidemia, hypothyroidism, Crohn's disease with low serum sodium and weakness and dizziness. 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 We will discontinue D5W tonight and repeat BMP in the morning. I encourage dietaries, salt intake of 2 grams p.o. daily and avoid hydrochlorothiazide, if needed consider loop diuretics, Lasix 20 mg p.o. b.i.d. We will follow with you. Thank you for allowing me to participate in your the patient's care and BMP in the morning. Darío Chambers MD
[2017-04-26] MEDS: oxyCODONE 5 mg Immediate Release Tab PO PRN (01:12)
[2017-04-26] MEDS: Levothyroxine 50 MCG TAB PO SCH (06:08)
[2017-04-26 08:07] VITALS: O2SAT 96
[2017-04-26 09:02] LABS: CHLORIDE 95 mmol/L (98-107); SODIUM 130 mmol/L (132-148)
[2017-04-26 09:05] LABS: BLOOD UREA NITROGEN 7 mg/dL (7-17); CARBON DIOXIDE 24 mmol/L (22-30); GFR AFRICAN-AMERICAN > 60
[2017-04-26 09:06] LABS: CALCIUM 9.2 mg/dl (8.6-10.4); GLUCOSE,RANDOM 83 mg/dL (65-105)
[2017-04-26] MEDS: Pantoprazole 40 mg EC Tab PO SCH (10:16)
[2017-04-26] MEDS: Enoxaparin 40 mg Syringe SC SCH (10:17)
[2017-04-26] MEDS ORDERED: guaiFENesin 200 mg/10 ml Syrup UD PO PRN (12:01)
--- NOTE | 2017-04-26 14:42 | CP.PCM.PN ---
Subjective - Date & Time of Evaluation Date of Evaluation: 04/26/17 Time of Evaluation: 11:00 - Subjective Subjective: patient seen today, denies any chest pain, sob, dizziness, palpitations, headache, N/V/D No overnight events reported by RN NA stable- 130>132>128>121>117 Objective - Vital Signs/Intake and Output Vital Signs (last 24 hours): Temp Pulse Resp BP Pulse Ox 98.0 F 73 18 134/86 96 04/26/17 07:00 04/26/17 07:00 04/26/17 07:00 04/26/17 10:17 04/26/17 07:00 Intake and Output: 04/26/17 04/26/17 06:59 18:59 Intake Total 1040 Balance 1040 - Medications Medications: Current Medications Acetaminophen (Tylenol 325mg Tab) 650 mg PO Q4H PRN PRN Reason: Pain, MILD (1-3) Enoxaparin Sodium (Lovenox) 40 mg SC DAILY [facility] Last Admin: 04/26/17 10:17 Dose: 40 mg Guaifenesin (Robitussin) 200 mg PO Q4H PRN PRN Reason: Cough and congestion Last Admin: 04/26/17 13:39 Dose: 200 mg Levothyroxine Sodium (Synthroid) 50 mcg PO DAILY@0630 [facility] Last Admin: 04/26/17 06:08 Dose: 50 mcg Losartan Potassium (Cozaar) 100 mg PO DAILY [facility] Last Admin: 04/26/17 10:16 Dose: 100 mg Mesalamine (Delzicol) 800 mg PO TID [facility] Last Admin: 04/26/17 13:39 Dose: 800 mg Metoprolol Tartrate (Lopressor) 25 mg PO Q12 [facility] Last Admin: 04/26/17 10:17 Dose: 25 mg Oxycodone HCl (Oxycodone Immediate Release Tab) 5 mg PO Q6 PRN PRN Reason: Pain, moderate (4-7) Last Admin: 04/26/17 01:12 Dose: 5 mg Pantoprazole Sodium (Protonix Ec Tab) 40 mg PO DAILY [facility] Last Admin: 04/26/17 10:16 Dose: 40 mg Rosuvastatin Calcium (Crestor) 10 mg PO HS [facility] Last Admin: 04/25/17 21:17 Dose: 10 mg Sertraline HCl (Zoloft) 50 mg PO DAILY [facility] Last Admin: 04/26/17 10:16 Dose: 50 mg - Labs Labs: 04/23/17 07:12 04/26/17 08:22 - Constitutional Appears: Well, No Acute Distress - Respiratory Exam Respiratory Exam: Clear to Ausculation Bilateral, NORMAL BREATHING PATTERN - Cardiovascular Exam Cardiovascular Exam: REGULAR RHYTHM, +S1, +S2 - Neurological Exam Neurological Exam: Alert, Awake, Oriented x3 Assessment and Plan - Assessment and Plan (Free Text) Assessment: A/P 86 yr old female admitted for hyponatremia Na improved - and stable - 130<132>128.>117 d/w Dr. Hook cleared for discharge home from nephrology stand point and no HCTZ if need can add lasix after 1 week D/w Dr. salcido, stable for discharge home today and f/u with PMD in 3-5 days discharge plan discussed with patient who understands and agree with plan rx given
[2017-04-26 18:19] VITALS: BP 167/67; PULSE 64; RESP 20; TEMP 98.1
--- NOTE | 2017-04-26 18:26 | CP.PCM.PN ---
Subjective - Date & Time of Evaluation Date of Evaluation: 04/26/17 Time of Evaluation: 18:26 - Subjective Subjective: pt is seen and examined, follow up consult is dictated #[id number] Objective - Vital Signs/Intake and Output Vital Signs (last 24 hours): Temp Pulse Resp BP Pulse Ox 98.1 F 64 20 167/67 H 96 04/26/17 16:00 04/26/17 16:00 04/26/17 16:00 04/26/17 16:00 04/26/17 16:00 Intake and Output: 04/26/17 04/26/17 06:59 18:59 Intake Total 1040 Balance 1040 - Medications Medications: Current Medications Acetaminophen (Tylenol 325mg Tab) 650 mg PO Q4H PRN PRN Reason: Pain, MILD (1-3) Enoxaparin Sodium (Lovenox) 40 mg SC DAILY [facility] Last Admin: 04/26/17 10:17 Dose: 40 mg Guaifenesin (Robitussin) 200 mg PO Q4H PRN PRN Reason: Cough and congestion Last Admin: 04/26/17 13:39 Dose: 200 mg Levothyroxine Sodium (Synthroid) 50 mcg PO DAILY@0630 [facility] Last Admin: 04/26/17 06:08 Dose: 50 mcg Losartan Potassium (Cozaar) 100 mg PO DAILY [facility] Last Admin: 04/26/17 10:16 Dose: 100 mg Mesalamine (Delzicol) 800 mg PO TID [facility] Last Admin: 04/26/17 17:58 Dose: 800 mg Metoprolol Tartrate (Lopressor) 25 mg PO Q12 [facility] Last Admin: 04/26/17 10:17 Dose: 25 mg Oxycodone HCl (Oxycodone Immediate Release Tab) 5 mg PO Q6 PRN PRN Reason: Pain, moderate (4-7) Last Admin: 04/26/17 01:12 Dose: 5 mg Pantoprazole Sodium (Protonix Ec Tab) 40 mg PO DAILY [facility] Last Admin: 04/26/17 10:16 Dose: 40 mg Rosuvastatin Calcium (Crestor) 10 mg PO HS [facility] Last Admin: 04/25/17 21:17 Dose: 10 mg Sertraline HCl (Zoloft) 50 mg PO DAILY [facility] Last Admin: 04/26/17 10:16 Dose: 50 mg - Labs Labs: 04/23/17 07:12 04/26/17 08:22
--- NOTE | 2017-04-26 23:44 | CP.PCM.DIS ---
Provider - Provider Date of Admission: 04/22/17 17:34 Attending physician: Brodie Chong MD Diagnosis - Discharge Diagnosis (1) Hyponatremia Status: Acute (2) Lumbar radiculopathy Status: Acute (3) Laceration of leg not thigh, left Status: Acute (4) Osteoarthritis Status: Acute (5) Dizziness Status: Acute Hospital Course - Lab Results Lab Results: Most Recent Lab Values WBC 11.2 K/uL (4.8-10.8) H 04/23/17 07:12 RBC 3.59 Mil/uL (3.80-5.20) L 04/23/17 07:12 Hgb 10.5 g/dL (11.0-16.0) L 04/23/17 07:12 Hct 30.9 % (34.0-47.0) L 04/23/17 07:12 MCV 86.2 fL (81.0-99.0) 04/23/17 07:12 MCH 29.2 pg (27.0-31.0) 04/23/17 07:12 MCHC 33.9 g/dL (33.0-37.0) 04/23/17 07:12 RDW 14.7 % (11.5-14.5) H 04/23/17 07:12 Plt Count 374 K/uL (130-400) 04/23/17 07:12 MPV 7.8 fL (7.2-11.7) 04/23/17 07:12 Neut % (Auto) 85.3 % (50.0-75.0) H 04/22/17 16:47 Lymph % (Auto) 8.0 % (20.0-40.0) L 04/22/17 16:47 [place] % (Auto) 5.6 % (0.0-10.0) 04/22/17 16:47 Eos % (Auto) 0.5 % (0.0-4.0) 04/22/17 16:47 Baso % (Auto) 0.6 % (0.0-2.0) 04/22/17 16:47 Neut # 11.7 K/uL (1.8-7.0) H 04/22/17 16:47 Lymph # 1.1 K/uL (1.0-4.3) 04/22/17 16:47 [place] # 0.8 K/uL (0.0-0.8) 04/22/17 16:47 Eos # 0.1 K/uL (0.0-0.7) 04/22/17 16:47 Baso # 0.1 K/uL (0.0-0.2) 04/22/17 16:47 Neutrophils % (Manual) 84 % (50-75) H 04/22/17 16:47 Lymphocytes % (Manual) 10 % (20-40) L 04/22/17 16:47 Monocytes % (Manual) 6 % (0-10) 04/22/17 16:47 Platelet Estimate Slightly increased (NORMAL) H 04/22/17 16:47 Large Platelets Present 04/22/17 16:47 Sodium 130 mmol/L (132-148) L 04/26/17 08:22 Potassium 4.0 mmol/L (3.6-5.2) 04/26/17 08:22 Chloride 95 mmol/L (98-107) L 04/26/17 08:22 Carbon Dioxide 24 mmol/L (22-30) 04/26/17 08:22 Anion Gap 16 (10-20) 04/26/17 08:22 BUN 7 mg/dL (7-17) 04/26/17 08:22 Creatinine 0.6 mg/dL (0.7-1.2) L 04/26/17 08:22 Est GFR ( Amer) > 60 04/26/17 08:22 Est GFR (Non-Af Amer) > 60 04/26/17 08:22 Random Glucose 83 mg/dL (65-105) 04/26/17 08:22 Serum Osmolality 255 mosm/kg (272-300) L 04/23/17 11:40 Uric Acid 5.2 mg/dL (2.2-7.5) 04/23/17 11:40 Calcium 9.2 mg/dl (8.6-10.4) 04/26/17 08:22 Total Bilirubin 0.6 mg/dL (0.2-1.3) 04/22/17 16:47 AST 23 U/L (14-36) 04/22/17 16:47 ALT 24 U/L (9-52) 04/22/17 16:47 Alkaline Phosphatase 95 U/L (38-126) 04/22/17 16:47 Troponin I < 0.0120 ng/mL (0.00-0.120) 04/22/17 16:47 NT-Pro-B Natriuret Pep 934 pg/mL (0-900) H 04/22/17 16:47 Total Protein 7.4 g/dL (6.3-8.3) 04/22/17 16:47 Albumin 4.1 g/dL (3.5-5.0) 04/22/17 16:47 Globulin 3.3 gm/dL (2.2-3.9) 04/22/17 16:47 Albumin/Globulin Ratio 1.3 (1.0-2.1) 04/22/17 16:47 TSH 3rd Generation 11.80 mIU/L (0.46-4.68) H 04/23/17 11:40 Urine Osmolality 319 mosm/kg (300-1000) 04/23/17 19:55 Ur Random Sodium 114 mmol/L 04/23/17 19:55 Urine Chloride 110 mmol/L (32-290) 04/23/17 14:57 - Hospital Course Hospital Course: A/P 86 yr old female admitted for hyponatremia Na improved - and stable - 130<132>128.>117 d/w Dr. Hook cleared for discharge home from nephrology stand point and no HCTZ if need can add lasix after 1 week D/w Dr. chong, stable for discharge home today and f/u with PMD in 3-5 days discharge plan discussed with patient who understands and agree with plan rx given Discharge Exam - Head Exam Head Exam: ATRAUMATIC, NORMAL INSPECTION, NORMOCEPHALIC Discharge Plan - Discharge Medications Prescriptions: Losartan [Cozaar] 100 mg PO DAILY #30 tab Pantoprazole [Protonix EC Tab] 40 mg PO DAILY #30 ect Walker [Rolling Walker] 1 dev XX PRN PRN #1 dev PRN Reason: ambulation Levothyroxine [Synthroid] 50 mcg PO DAILY@0630 #30 tab - Follow Up Plan Condition: FAIR Disposition: HOME/ ROUTINE Instructions: Levothyroxine (By mouth), Losartan (By mouth), Pantoprazole (By mouth), Heart Healthy Diet (DC), Hyponatremia (DC) Additional Instructions: Please f/u with PMD in 1 week ( not later than next Monday )-need repeat lab work Continue medication a sper Med. REc. Referrals: Brodie Cohng MD [Staff Provider] -
--- NOTE | 2017-04-27 00:48 | PN ---
DATE: FOLLOWUP RENAL CONSULTATION LOCATION: Room 656, bed B. REQUESTED BY: Brodie Chong MD REASON FOR FOLLOWUP: Hyponatremia and hypertension for further evaluation. SUBJECTIVE: Ms. 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 The patient is feeling much better, not in acute distress. She denies any complaints. No chest pain. No palpitation. No fever. No cough. No abdominal pain. No nausea, vomiting, or diarrhea. No edema of the legs. PHYSICAL EXAMINATION: GENERAL: As follows, Ms. Méndez is an 86-year-old elderly female, moderately built and moderately nourished, not in acute distress. VITAL SIGNS: Blood pressure of 167/67, pulse of 64, respirations of 20, temperature of 98.1, and oxygen saturation of 96%. Height is 5 feet 5 inches, and weight is 125 pounds. HEENT: Pupils are normal and reactive to light and accommodation. Conjunctiva are pink. Sclerae are anicteric. Tongue is moist. Trachea is midline. LUNGS: Symmetric on both sides. Bilateral breath sounds present. Clear on auscultation. CARDIOVASCULAR SYSTEM: [place] at the fifth intercostal space to midclavicular line. S1 and S2 audible. No murmur or gallop. ABDOMEN: Normal in appearance, soft, and tympanic. No guarding. No hepatosplenomegaly. CENTRAL NERVOUS SYSTEM: The patient is alert, awake, oriented x3. Nonfocal on examination. Cranial nerves II through XII grossly intact. Sensory and motor system is within normal limits. EXTREMITIES: No cyanosis. No clubbing. No edema. LABORATORY DATA: Include as follows; as of 04/26/2017, sodium of 130, potassium of 4, chloride of 95, CO2 of 24, BUN of 7, creatinine of 0.6, glucose of 83, and calcium is 9.2. CURRENT MEDICATIONS: As follows; metoprolol 25 mg p.o. q. 12 hours, mesalamine 800 mg p.o. t.i.d., sertraline 50 mg p.o. daily, Lipitor 20 mg p.o. at bedtime, Protonix 40 mg daily, Cozaar 100 mg p.o. daily, and levothyroxine 50 mcg p.o. daily. ASSESSMENT AND PLAN: Ms. Méndez is an 86-year-old elderly female with hypertension, hyperlipidemia, hypothyroidism and Crohn's disease who was admitted with feeling weak, dizziness, cough and hyponatremia. 1. Hyponatremia, mostly likely is secondary to syndrome of inappropriate antidiuretic hormone secondary to . The patient is off hydrochlorothiazide and also off intravenous fluids, serum sodium this morning is 130, relatively stable and asymptomatic. 2. Hypertension, blood pressure is stable. 3. Crohn's disease, stable, continue mesalamine. Encourage normal diet in the next couple of days and then followup on basic metabolic profile and avoid hydrochlorothiazide at this time and avoid drugs that can cause hyponatremia if possible. We will follow with you. Thank you for allowing me to participate in your patient's care and discuss with the nurse practitioner, Lashonda in the morning. Darío Chambers MD
== END 2017-04-26 19:10 | disposition home or self-care (01) | DRG 644 ==
LOC: C.ER 14:51 → C.9E 17:34 → C.6T 21:07
PROVIDERS: ADMIT Internal Medicine; ATTEND Internal Medicine
DX: E22.2 Syndrome of inappropriate secretion of antidiuretic hormone (principal); K50.90 Crohn's disease, unspecified, without complications; J44.9 Chronic obstructive pulmonary disease, unspecified; I12.9 Hypertensive chronic kidney disease with stage 1 through stage 4 chronic kidney disease, or unspecified chronic kidney disease; E03.9 Hypothyroidism, unspecified; T50.2X5A Adverse effect of carbonic-anhydrase inhibitors, benzothiadiazides and other diuretics, initial encounter; E78.00 Pure hypercholesterolemia, unspecified; Z99.81 Dependence on supplemental oxygen; M19.90 Unspecified osteoarthritis, unspecified site; I49.9 Cardiac arrhythmia, unspecified; M54.16 Radiculopathy, lumbar region; N18.9 Chronic kidney disease, unspecified; Z87.891 Personal history of nicotine dependence

== ENCOUNTER 2017-07-05 14:10 | Emergency (ER) | payer MEDICARE, BC ==
[2017-07-05 14:11] VITALS: PULSE 140; BMI 23.1
--- NOTE | 2017-07-05 15:18 | C.PDOC ---
History Of Present Illness 87 year old female presents to the ED after being sent by her PMD for evaluation of generalized weakness. Patient has history of Crohn's disease and has been experiencing intermittent diarrhea. Her PMD did bloodwork and found patient was dehydrated and that her renal function has worsened. When asked how long she has been experiencing weakness, patient states that she is a very sick person and cannot remember when her symptoms began. Patient denies fever, chills , nausea, vomiting, abdominal pain at this time. Time Seen by Provider: 07/05/17 14:41 Chief Complaint (Nursing): Weakness/Neurological Deficit History Per: Patient History/Exam Limitations: no limitations Onset/Duration Of Symptoms: Hrs Current Symptoms Are (Timing): Still Present Additional History Per: Patient Past Medical History Reviewed: Historical Data, Nursing Documentation, Vital Signs Vital Signs: Last Vital Signs Temp 97.8 F 07/05/17 18:01 Pulse 71 07/05/17 18:01 Resp 19 07/05/17 18:01 BP 179/79 H 07/05/17 18:01 Pulse Ox 95 07/05/17 18:27 - Medical History PMH: Arthritis, COPD, Crohn's Disease, HTN, Hypercholesterolemia, Hypothyroidism , Obstructive Bowel, Chronic Kidney Disease Surgical History: Appendectomy, Cholecystectomy - [facility] Procedures FLUOROSCOPY OF LEFT JUGULAR VEINS, GUIDANCE (05/31/15) GAIT TRAINING/FUNCTIONAL AMBULATION TREATMENT (06/08/15) HOME MANAGEMENT TREATMENT (06/08/15) INSERT INFUSION DEV IN L INT JUGULAR VEIN, PERC (05/31/15) PERFORMANCE OF URINARY FILTRATION, SINGLE (05/31/15) THERAPEUTIC EXERCISE TREATMENT OF MUSCULOSK WHOLE (06/08/15) ULTRASONOGRAPHY OF LEFT JUGULAR VEINS, GUIDANCE (05/31/15) Family History: States: Unknown Family Hx - Social History Hx Tobacco Use: Yes (quit 30 years ago, 20-year history) Hx Alcohol Use: No Hx Substance Use: No - Immunization History Hx Tetanus Toxoid Vaccination: No Hx Influenza Vaccination: Yes (2012) Hx Pneumococcal Vaccination: No Review Of Systems Constitutional: Positive for: Weakness. Negative for: Fever, Chills Gastrointestinal: Positive for: Diarrhea. Negative for: Nausea, Vomiting, Abdominal Pain Physical Exam - Physical Exam Appears: Non-toxic, No Acute Distress Skin: Normal Color, Warm, Dry Head: Atraumatic, Normacephalic Eye(s): bilateral: Normal Inspection Oral Mucosa: Moist Neck: Supple Chest: Symmetrical, No Deformity, No Tenderness Cardiovascular: Rhythm Regular, No Murmur Respiratory: Normal Breath Sounds, No Rales, No Rhonchi, No Wheezing Gastrointestinal/Abdominal: Soft, No Tenderness, No Guarding, No Rebound Extremity: Normal ROM, Capillary Refill (less than 2 seconds ) Neurological/Psych: Oriented x3, Normal Speech, Normal Cognition ED Course And Treatment - Laboratory Results Result Diagrams: 07/05/17 15:56 07/05/17 15:56 O2 Sat by Pulse Oximetry: 95 (on RA) Pulse Ox Interpretation: Normal - Other Rad CXR X-Ray: Interpreted by Me, Viewed By Me, Read By Radiologist Interpretation: PROCEDURE: CHEST RADIOGRAPH, 1 VIEW. HISTORY: weakness. COMPARISON: 04/22/2017. FINDINGS: LUNGS: Clear. PLEURA: No pneumothorax or pleural fluid seen. CARDIOVASCULAR: Mild cardiomegaly. Abnormal contour of the descending thoracic aorta. This may reflect aneurysmal dilatation. Consider evaluation with computed tomography. Although this appearance is unchanged from 04/22/2017, it represents interval change compared to 2012. Central retrocardiac density consistent with known hiatal hernia. OSSEOUS STRUCTURES: No significant abnormalities. VISUALIZED UPPER ABDOMEN: Normal. OTHER FINDINGS: None. IMPRESSION: Abnormal contour of descending thoracic aorta. Cannot rule out aneurysmal dilatation of descending thoracic aorta. Consider evaluation with computed tomography. Hiatal hernia. No infiltrate. - CT Scan/US CT Chest Other Rad Studies (CT/US): Read By Radiologist, Radiology Report Reviewed CT/US Interpretation: Accession No. : [id number]. Patient Name / ID : MILKA LIEBERMAN / [id number]. Exam Date : 07/05/2017 17:33:57 ( Approved ). Study Comment : Sex / Age : F / 87Y. Creator : Samantha Aquino. Dictator : Naina Perez MD. Shell Assembler : Tool Design Engineer : Naina Perez MD. Approver2 : Report Date : 07/05/2017 17:43:44. My Comment : . CT chest without IV contrast. Indication: ? aortic aneurysm, CRI (non contrast CT). Technique: Contiguous axial images were obtained through the chest without intravenous contrast enhancement. Sagittal and coronal reconstructions were generated and reviewed. This CT exam was performed using 1 or more of the falling dose reduction techniques: Automated exposure control, adjustment of the MAA and/or kV according to patient size, and/or use of iterative reconstruction technique. . Radiation dose (DLP): 323.65 MGy-cm. Comparison : Chest x-ray performed 07/05/17, CT chest without contrast 05/22/13. Findings: The unenhanced mediastinal and hilar vascular structures appear grossly unremarkable. Heart size appears within normal limits. Small pericardial effusion. Dense atherosclerotic calcifications involving the thoracic aorta. Aortic ectasia. Dense coronary artery calcifications. No focal consolidation. No pleural effusion. No pneumothorax. Numerous bilateral tiny pulmonary nodules measuring up to 6 mm in the right lower lobe (series 3, image 79). Large hiatal hernia containing debris. Limited visualization of the noncontrast upper abdomen demonstrates pancreatic atrophy. Dilated common bile duct measures approximately 13 mm. Osseous demineralization. Degenerative changes. Impression: Multiple solid pulmonary nodules measuring up to approximately 6 mm maximally in size. According to the 2017 Fleischner criteria, if the patient is low risk, CT at 3-6 months is recommended, then consider CT at 18-24 months. If the patient is high risk, CT at 3-6 months is recommended, then at 18-24 months. Large hiatal hernia containing debris. Pancreatic atrophy. Dilated common bile duct measures approximately 13 mm. Small pericardial effusion. Dense atherosclerotic calcifications involving the thoracic aorta. Aortic ectasia. Dense coronary artery calcifications. Progress Note: Bloodwork, urinalysis, CXR, and EKG were ordered and reviewed. 500ml IV Fluids administered. Patient's CXR shows evidence of aortic aneurysm. Result is unchanged from CXR taken in 04/2017 but changed from CXR taken in 2012. Case discussed with patient's PMD, Dr. Aguiar, who states that patient often becomes dehydrated when she has intermittent episodes of diarrhea. Patient also has several episodes of renal insufficiency which returns back to normal when patient becomes hydrated. Patient's kidney function is currently unremarkable. Patinet will be given 500ml of IV fluids and CT without IV contrast is ordered. If CT scan is unremarkable, patient will be cleared for discharge. Disposition - Disposition Referrals: Roverto Melgar MD [Medical Doctor] - Disposition: HOME/ ROUTINE Disposition Time: 18:23 Condition: STABLE Additional Instructions: Follow up with your PMD within 1-2 days. Return to ED if feel worse. Instructions: Chronic Diarrhea (ED), Weakness (ED) Forms: [employer] (Macanese) - Clinical Impression Clinical Impression: History of chronic diarrhea, Weakness, Lung nodules - PA / HEEL SHAVER / Resident Statement MD/DO has reviewed & agrees with the documentation as recorded. - Scribe Statement The provider has reviewed the documentation as recorded by the Scribe (Ariela Velazquez) All medical record entries made by the Scribe were at my direction and personally dictated by me. I have reviewed the chart and agree that the record accurately reflects my personal performance of the history, physical exam, medical decision making, and the department course for this patient. I have also personally directed, reviewed, and agree with the discharge instructions and disposition.
[2017-07-05 15:24] LABS: BASO % 0.9 % (0.0-2.0); EOS # 0.1 K/uL (0.0-0.7); EOS % 2.4 % (0.0-4.0); HEMOGLOBIN 11.8 g/dL (11.0-16.0); LYMPH # 1.5 K/uL (1.0-4.3); LYMPH % 29.7 % (20.0-40.0); MEAN CELL VOLUME 93.2 fL (81.0-99.0); MEAN CORPUSCULAR HEMOGLOBIN 30.9 pg (27.0-31.0); MEAN CORPUSCULAR HGB CONC 33.2 g/dL (33.0-37.0); MEAN PLATELET VOLUME 7.4 fL (7.2-11.7); MONO # 0.7 K/uL (0.0-0.8); MONO % 13.5 % (0.0-10.0); NEUT # 2.6 K/uL (1.8-7.0); NEUT % 53.5 % (50.0-75.0); NRBC % 0.1 % (0.0-2.0); RBC 3.81 Mil/uL (3.80-5.20); RED CELL DISTRIBUTION WIDTH 15.2 % (11.5-14.5); WHITE BLOOD COUNT 4.9 K/uL (4.8-10.8)
[2017-07-05] MEDS ORDERED: Sodium Chloride 0.9% 1,000 ML ONE (15:26)
[2017-07-05 15:34] LABS: ALB/GLOB RATIO 0.9 (1.0-2.1); ALBUMIN 3.5 g/dL (3.5-5.0); ALT/SGPT 29 U/L (9-52); AMYLASE 174 U/L (30-110); AST/SGOT 28 U/L (14-36); BLOOD UREA NITROGEN 16 mg/dL (7-17); CALCIUM 8.3 mg/dl (8.6-10.4); GFR AFRICAN-AMERICAN > 60; GFR NON-AFRICAN AMERICAN 52; LIPASE 282 U/L (23-300)
[2017-07-05] MEDS: Sodium Chloride 0.9% 500 ML IV STA ×2 (15:35→17:24)
--- NOTE | 2017-07-05 15:59 | RAD ---
PROCEDURE: CHEST RADIOGRAPH, 1 VIEW HISTORY: weakness COMPARISON: 04/22/2017 FINDINGS: LUNGS: Clear. PLEURA: No pneumothorax or pleural fluid seen. CARDIOVASCULAR: Mild cardiomegaly. Abnormal contour of the descending thoracic aorta. This may reflect aneurysmal dilatation. Consider evaluation with computed tomography. Although this appearance is unchanged from 04/22/2017, it represents interval change compared to 05/21/2013. Central retrocardiac density consistent with known hiatal hernia. OSSEOUS STRUCTURES: No significant abnormalities. VISUALIZED UPPER ABDOMEN: Normal. OTHER FINDINGS: None. IMPRESSION: Abnormal contour of descending thoracic aorta. Cannot rule out aneurysmal dilatation of descending thoracic aorta. Consider evaluation with computed tomography. Hiatal hernia. No infiltrate.
[2017-07-05 16:27] LABS: BASO # 0.1 K/uL (0.0-0.2); EOS # 0.2 K/uL (0.0-0.7); EOS % 1.9 % (0.0-4.0); LYMPH # 1.4 K/uL (1.0-4.3); MEAN CORPUSCULAR HEMOGLOBIN 27.5 pg (27.0-31.0); MEAN PLATELET VOLUME 9.9 fL (7.2-11.7); MONO # 0.8 K/uL (0.0-0.8); MONO % 7.1 % (0.0-10.0); NEUT # 8.3 K/uL (1.8-7.0); NRBC % 0.1 % (0.0-2.0); RBC 3.54 Mil/uL (3.80-5.20); RED CELL DISTRIBUTION WIDTH 16.6 % (11.5-14.5)
[2017-07-05 16:29] LABS: INR 1.3; PROTHROMBIN TIME 14.6 SECONDS (9.7-12.2)
[2017-07-05 16:31] LABS: HEMOGLOBIN 9.7 g/dL (11.0-16.0); MEAN CELL VOLUME 86.2 fL (81.0-99.0); WHITE BLOOD COUNT 10.8 K/uL (4.8-10.8)
[2017-07-05 16:41] LABS: ALB/GLOB RATIO 1.4 (1.0-2.1); ALBUMIN 3.4 g/dL (3.5-5.0); ALT/SGPT 24 U/L (9-52); AST/SGOT 27 U/L (14-36); BLOOD UREA NITROGEN 22 mg/dL (7-17); CALCIUM 8.2 mg/dl (8.6-10.4); GFR AFRICAN-AMERICAN > 60; GFR NON-AFRICAN AMERICAN 59
--- NOTE | 2017-07-05 18:16 | CT ---
CT chest without IV contrast Indication: ? aortic aneurysm, CRI (non contrast CT) Technique: Contiguous axial images were obtained through the chest without intravenous contrast enhancement. Sagittal and coronal reconstructions were generated and reviewed. This CT exam was performed using 1 or more of the falling dose reduction techniques: Automated exposure control, adjustment of the MAA and/or kV according to patient size, and/or use of iterative reconstruction technique. Radiation dose (DLP): 323.65 MGy-cm. Comparison: Chest x-ray performed 07/05/17, CT chest without contrast 05/22/13 Findings: The unenhanced mediastinal and hilar vascular structures appear grossly unremarkable. Heart size appears within normal limits. Small pericardial effusion. Dense atherosclerotic calcifications involving the thoracic aorta. Aortic ectasia. Dense coronary artery calcifications. No focal consolidation. No pleural effusion. No pneumothorax. Numerous bilateral tiny pulmonary nodules measuring up to 6 mm in the right lower lobe (series 3, image 79). Large hiatal hernia containing debris. Limited visualization of the noncontrast upper abdomen demonstrates pancreatic atrophy. Dilated common bile duct measures approximately 13 mm. Osseous demineralization. Degenerative changes. Impression: Multiple solid pulmonary nodules measuring up to approximately 6 mm maximally in size. According to the 2017 Fleischner criteria, if the patient is low risk, CT at 3-6 months is recommended, then consider CT at 18-24 months. If the patient is high risk, CT at 3-6 months is recommended, then at 18-24 months. Large hiatal hernia containing debris. Pancreatic atrophy. Dilated common bile duct measures approximately 13 mm. Small pericardial effusion. Dense atherosclerotic calcifications involving the thoracic aorta. Aortic ectasia. Dense coronary artery calcifications.
[2017-07-05 19:21] VITALS: BP 178/94; PULSE 76; RESP 18; TEMP 98.1; O2SAT 96
--- NOTE | 2017-07-06 14:12 | CARD ---
APPROVED REPORT EKG Measurement Heart [id number] 120P21 [id number] <Conclusion> Sinus rhythm with premature atrial complexes Left axis deviation Septal infarct, age undetermined Abnormal ECG
== END 2017-07-05 20:23 | disposition home or self-care (01) ==
LOC: C.ER 14:10
DX: J44.9 Chronic obstructive pulmonary disease, unspecified (principal); R53.1 Weakness; K52.9 Noninfective gastroenteritis and colitis, unspecified; I12.9 Hypertensive chronic kidney disease with stage 1 through stage 4 chronic kidney disease, or unspecified chronic kidney disease; N18.9 Chronic kidney disease, unspecified; E03.9 Hypothyroidism, unspecified; E78.00 Pure hypercholesterolemia, unspecified; Z87.891 Personal history of nicotine dependence
CPT/HCPCS: 71045; 71250; 80053; 82150; 83690; 83735; 85025; 85610; 85730; 93005; 99285; J7040

== ENCOUNTER 2017-08-02 10:49 | Emergency (ER) | payer MEDICARE, BC ==
[2017-08-02 10:50] VITALS: PULSE 140; BMI 23.1
[2017-08-02] MEDS ORDERED: Sodium Chloride 0.9% 500 ML IV ONE (11:31)
[2017-08-02] MEDS ORDERED: Sodium Chloride 0.9% 1,000 ML ONE (11:45)
--- NOTE | 2017-08-02 12:41 | C.PDOC ---
History Of Present Illness 87-year-old female, presents to the emergency department with complaints of two- day duration of watery diarrhea, abdominal cramping and generalized weakness. Denies fever, nausea/vomiting, chest pain, shortness of breath, dysuria, or any other associated symptoms. No other complaints at this time. Time Seen by Provider: 08/02/17 11:21 Chief Complaint (Nursing): Abdominal Pain History Per: Patient History/Exam Limitations: no limitations Past Medical History Reviewed: Historical Data, Nursing Documentation, Vital Signs Vital Signs: Last Vital Signs Temp 98.0 F 08/02/17 10:52 Pulse 68 08/02/17 14:30 Resp 22 08/02/17 14:30 BP 172/70 H 08/02/17 14:30 Pulse Ox 95 08/02/17 14:59 - Medical History PMH: Arthritis, Bronchitis, COPD, Crohn's Disease, HTN, Hypercholesterolemia, Hypothyroidism, Obstructive Bowel, Chronic Kidney Disease Surgical History: Appendectomy, Cholecystectomy - [facility] Procedures FLUOROSCOPY OF LEFT JUGULAR VEINS, GUIDANCE (05/31/15) GAIT TRAINING/FUNCTIONAL AMBULATION TREATMENT (06/08/15) HOME MANAGEMENT TREATMENT (06/08/15) INSERT INFUSION DEV IN L INT JUGULAR VEIN, PERC (05/31/15) PERFORMANCE OF URINARY FILTRATION, SINGLE (05/31/15) THERAPEUTIC EXERCISE TREATMENT OF MUSCULOSK WHOLE (06/08/15) ULTRASONOGRAPHY OF LEFT JUGULAR VEINS, GUIDANCE (05/31/15) Family History: States: No Known Family Hx - Social History Hx Tobacco Use: Yes (quit 30 years ago, 20-year history) Hx Alcohol Use: No Hx Substance Use: No - Immunization History Hx Tetanus Toxoid Vaccination: No Hx Influenza Vaccination: Yes Hx Pneumococcal Vaccination: No Review Of Systems Except As Marked, All Systems Reviewed And Found Negative. Constitutional: Negative for: Fever, Chills Cardiovascular: Negative for: Chest Pain Respiratory: Negative for: Cough, Shortness of Breath Gastrointestinal: Positive for: Abdominal Pain, Diarrhea. Negative for: Nausea , Vomiting Neurological: Negative for: Weakness, Numbness, Headache, Dizziness Physical Exam - Physical Exam Appears: Non-toxic, No Acute Distress Skin: Warm, Dry, No Rash Head: Atraumatic, Normacephalic Eye(s): bilateral: Normal Inspection, PERRL Nose: Normal Oral Mucosa: Moist Lips: Normal Appearing Neck: Normal ROM Chest: Symmetrical Cardiovascular: Rhythm Regular, No Murmur Respiratory: Normal Breath Sounds, No Accessory Muscle Use Gastrointestinal/Abdominal: Soft, Tenderness (mild, epigastric), No Guarding, No Rebound Extremity: Normal ROM Neurological/Psych: Oriented x3, Normal Speech ED Course And Treatment - Laboratory Results Result Diagrams: 08/02/17 12:31 08/02/17 12:31 O2 Sat by Pulse Oximetry: 95 (RA) Pulse Ox Interpretation: Normal - Radiology CXR: Viewed By Me, Read By Radiologist (Stable chronic prominence of the bilateral interstitial markings. No focal consolidation or pleural effusion) Progress Note: EKG, bloodwork, UA and cultures ordere and reviewed. Patient treated with IVF and Toradol Disposition Counseled Patient/Family Regarding: Diagnosis, Need For Followup, Rx Given - Disposition Referrals: Roverto Melgar MD [Medical Doctor] - Disposition: HOME/ ROUTINE Disposition Time: 14:00 Condition: STABLE Additional Instructions: FOLLOW UP WITH YOUR DOCTOR IN 1-2 DAYS DRINK PLENTY OF CLEAR FLUIDS RETURN TO ER IMMEDIATELY IF SYMPTOMS WORSEN Prescriptions: Dicyclomine [Bentyl] 20 mg PO Q6 PRN #12 tab PRN Reason: ABDOMINAL CRAMPING Instructions: Acute Diarrhea (ED), Weakness (ED) Forms: [employer] (Malay) Print Language: VIETNAMESE - POA Present On Arrival: None - Clinical Impression Clinical Impression: Diarrhea, Weakness - Scribe Statement The provider has reviewed the documentation as recorded by the Scribe (Rhina Bey) All medical record entries made by the Scribe were at my direction and personally dictated by me. I have reviewed the chart and agree that the record accurately reflects my personal performance of the history, physical exam, medical decision making, and the department course for this patient. I have also personally directed, reviewed, and agree with the discharge instructions and disposition.
[2017-08-02 12:43] LABS: BASO # 0.1 K/uL (0.0-0.2); EOS # 0.1 K/uL (0.0-0.7); EOS % 0.8 % (0.0-4.0); HEMOGLOBIN 9.3 g/dL (11.0-16.0); LYMPH # 1.1 K/uL (1.0-4.3); LYMPH % 9.6 % (20.0-40.0); MEAN CORPUSCULAR HEMOGLOBIN 27.4 pg (27.0-31.0); MEAN CORPUSCULAR HGB CONC 33.1 g/dL (33.0-37.0); MEAN PLATELET VOLUME 8.8 fL (7.2-11.7); MONO # 0.7 K/uL (0.0-0.8); MONO % 6.3 % (0.0-10.0); NEUT # 9.1 K/uL (1.8-7.0); NEUT % 82.3 % (50.0-75.0); NRBC % 0.1 % (0.0-2.0); PLATELET COUNT 329 K/uL (130-400); RBC 3.41 Mil/uL (3.80-5.20); RED CELL DISTRIBUTION WIDTH 16.8 % (11.5-14.5); WHITE BLOOD COUNT 11.1 K/uL (4.8-10.8)
[2017-08-02 12:46] LABS: MEAN CELL VOLUME 82.8 fL (81.0-99.0)
[2017-08-02 13:05] LABS: ALB/GLOB RATIO 1.4 (1.0-2.1); ALBUMIN 3.5 g/dL (3.5-5.0); ALT/SGPT 13 U/L (9-52); AST/SGOT 25 U/L (14-36); BLOOD UREA NITROGEN 14 mg/dL (7-17); CALCIUM 8.5 mg/dl (8.6-10.4); GFR AFRICAN-AMERICAN > 60; GFR NON-AFRICAN AMERICAN > 60
[2017-08-02 13:18] LABS: URINE BILIRUBIN NEGATIVE (NEGATIVE); URINE BLOOD NEGATIVE (NEGATIVE); URINE CLARITY Clear (Clear); URINE COLOR YELLOW (YELLOW); URINE GLUCOSE (UA) NEGATIVE (Normal); URINE LEUKOCYTE ESTERASE NEGATIVE Leu/uL (Negative); URINE NITRATE NEGATIVE (NEGATIVE); URINE PROTEIN NEGATIVE (NEGATIVE); URINE UROBILINOGEN 0.2 mg/dL (0.2-1.0)
--- NOTE | 2017-08-02 13:23 | RAD ---
PROCEDURE: CHEST RADIOGRAPH, 1 VIEW HISTORY: COUGH COMPARISON: Chest radiograph dated 07/05/2017. FINDINGS: LUNGS: Chronic prominence of the bilateral interstitial markings. No focal consolidation. PLEURA: No pneumothorax or pleural fluid seen. CARDIOVASCULAR: Atherosclerotic aortic calcifications. Cardiomediastinal silhouette stably enlarged. OSSEOUS STRUCTURES: Unchanged. VISUALIZED UPPER ABDOMEN: Normal. OTHER FINDINGS: None. IMPRESSION: Stable chronic prominence of the bilateral interstitial markings. No focal consolidation or pleural effusion.
[2017-08-02 13:30] LABS: BANDS 1 % (0-2); BASOPHIL 1 % (0-2); LYMPHOCYTE 8 % (20-40); MONOCYTE 2 % (0-10); NEUTROPHIL 88 % (50-75); PLATELET ESTIMATE NORMAL (NORMAL); TOTAL CELLS COUNTED 100
[2017-08-02 13:31] LABS: ANISOCYTOSIS SLIGHT; BURR CELLS SLIGHT; HYPOCHROMIC SLIGHT; MICROCYTOSIS SLIGHT; POIKILOCYTOSIS SLIGHT; TEARDROP CELLS SLIGHT
[2017-08-02 13:32] LABS: OVALOCYTES SLIGHT; TARGET CELLS SLIGHT
[2017-08-02 13:36] LABS: LARGE PLATELETS PRESENT
[2017-08-02 15:51] VITALS: BP 172/92; PULSE 74; RESP 20; TEMP 99.1; O2SAT 100
[2017-08-02 15:57] LABS: BASO # 0.1 K/uL (0.0-0.2); BASO % 0.9 % (0.0-2.0); EOS # 0.1 K/uL (0.0-0.7); EOS % 0.9 % (0.0-4.0); HEMOGLOBIN 9.5 g/dL (11.0-16.0); LYMPH # 1.1 K/uL (1.0-4.3); LYMPH % 10.9 % (20.0-40.0); MEAN CELL VOLUME 82.2 fL (81.0-99.0); MEAN CORPUSCULAR HEMOGLOBIN 27.9 pg (27.0-31.0); MEAN CORPUSCULAR HGB CONC 33.9 g/dL (33.0-37.0); MEAN PLATELET VOLUME 9.1 fL (7.2-11.7); MONO # 0.7 K/uL (0.0-0.8); MONO % 6.8 % (0.0-10.0); NEUT # 8.3 K/uL (1.8-7.0); NEUT % 80.5 % (50.0-75.0); RBC 3.41 Mil/uL (3.80-5.20); WHITE BLOOD COUNT 10.3 K/uL (4.8-10.8)
--- NOTE | 2017-08-03 22:11 | CARD ---
APPROVED REPORT EKG Measurement Heart [id number] 132P50 [id number] <Conclusion> Sinus rhythm with marked sinus arrhythmia with occasional premature ventricular complexes Possible Left atrial enlargement Left axis deviation Anteroseptal infarct, age undetermined Abnormal ECG
== END 2017-08-02 16:00 | disposition home or self-care (01) ==
LOC: C.ER 10:49
DX: R53.1 Weakness (principal); R19.7 Diarrhea, unspecified; E03.9 Hypothyroidism, unspecified; E78.00 Pure hypercholesterolemia, unspecified; I12.9 Hypertensive chronic kidney disease with stage 1 through stage 4 chronic kidney disease, or unspecified chronic kidney disease; N18.9 Chronic kidney disease, unspecified; Z87.891 Personal history of nicotine dependence
CPT/HCPCS: 71045; 80053; 81001; 85025; 87040; 87086; 93005; 96374; 99285; J1885; J7040

== ENCOUNTER 2017-09-02 12:50 | Emergency (ER) | payer MEDICARE, BC ==
[2017-09-02 12:50] VITALS: PULSE 140; BMI 23.1
--- NOTE | 2017-09-02 13:15 | C.PDOC ---
History Of Present Illness Pt is an 87-year-old female, with known hx crohn's disease who now presents with c/o intractable diarrhea, abdominal pain and generalized weakness. Pt feels she is likely dehydrated. Pt has been compliant with her Asacol. Was recently on Ampicillin. History Per: Patient History/Exam Limitations: no limitations Onset/Duration Of Symptoms: Days Current Symptoms Are (Timing): Still Present Severity: Moderate Pain Scale Rating Of: 3 Location Of Pain/Discomfort: LUQ Radiation Of Pain To:: None Quality Of Discomfort: Cramping Past Medical History Reviewed: Historical Data, Nursing Documentation, Vital Signs Vital Signs: Last Vital Signs Temp 98.5 F 09/02/17 17:17 Pulse 74 09/02/17 17:17 Resp 18 09/02/17 17:17 BP 143/88 09/02/17 17:17 Pulse Ox 95 09/02/17 17:17 - Medical History PMH: Arthritis, Bronchitis, COPD, Crohn's Disease, HTN, Hypercholesterolemia, Hypothyroidism, Obstructive Bowel, Chronic Kidney Disease Surgical History: Appendectomy, Cholecystectomy - [facility] Procedures FLUOROSCOPY OF LEFT JUGULAR VEINS, GUIDANCE (05/31/15) GAIT TRAINING/FUNCTIONAL AMBULATION TREATMENT (06/08/15) HOME MANAGEMENT TREATMENT (06/08/15) INSERT INFUSION DEV IN L INT JUGULAR VEIN, PERC (05/31/15) PERFORMANCE OF URINARY FILTRATION, SINGLE (05/31/15) THERAPEUTIC EXERCISE TREATMENT OF MUSCULOSK WHOLE (06/08/15) ULTRASONOGRAPHY OF LEFT JUGULAR VEINS, GUIDANCE (05/31/15) Family History: States: No Known Family Hx - Social History Hx Tobacco Use: Yes (quit 30 years ago, 20-year history) Hx Alcohol Use: No Hx Substance Use: No - Immunization History Hx Tetanus Toxoid Vaccination: No Hx Influenza Vaccination: Yes Hx Pneumococcal Vaccination: No Review Of Systems Except As Marked, All Systems Reviewed And Found Negative. Constitutional: Positive for: Malaise. Negative for: Fever, Chills Cardiovascular: Negative for: Chest Pain, Palpitations Respiratory: Negative for: Shortness of Breath Gastrointestinal: Positive for: Abdominal Pain, Diarrhea. Negative for: Nausea , Vomiting Musculoskeletal: Negative for: Back Pain Skin: Negative for: Rash Neurological: Negative for: Numbness, Headache, Dizziness Physical Exam - Physical Exam Appears: Well, Non-toxic, No Acute Distress Skin: Warm, Dry, Other (Poor turgor) Head: Atraumatic, Normacephalic Neck: Normal ROM Cardiovascular: Rhythm Regular, No Murmur Respiratory: Normal Breath Sounds, No Accessory Muscle Use Gastrointestinal/Abdominal: Soft, Tenderness (Diffuse, vague tenderness. Worse in LLQ), No Guarding, No Rebound Extremity: Normal ROM, No Deformity, No Swelling Neurological/Psych: Oriented x3, Normal Speech ED Course And Treatment - Laboratory Results Result Diagrams: 09/02/17 13:59 09/02/17 13:59 ECG: Interpreted By Me ECG Rhythm: Sinus Rhythm ECG Interpretation: Normal Interpretation Of ECG: Q waves anteroseptally c/w ols ASWMI.No acute evidence of ischemia,NSR at 62 BPM O2 Sat by Pulse Oximetry: 97 (RA) Pulse Ox Interpretation: Normal - CT Scan/US No standard instances Other Rad Studies (CT/US): Read By Radiologist CT/US Interpretation: No evidence of wall thickening,no free air,no acute pathology Medical Decision Making Medical Decision Making: Impression 87y/o F comes in with complaints of intractible non/bloody diarrhea x several days with generalized weakness Diff Dx (includes but not limited to) Crohn's exacerbation vs Dehydration Plan: * CT Abd/Pel * CMP, Lipase, Trop * CBC/PT * Morphine, IVFs, Zofran * Reassess and Disposition Disposition - Disposition Disposition: HOME/ ROUTINE Disposition Time: 00:14 Condition: GOOD Prescriptions: oxyCODONE/Acetaminophen 1/2TAB [Percocet 5-325 mg HALF TAB] 0.5 ea PO QID PRN # 10 tab PRN Reason: Pain, Mild (1-3) Instructions: Crohn's Disease in Adults Forms: [employer] (Swedish) Print Language: DIVEHI - Clinical Impression Clinical Impression: Abdominal pain, Crohn disease - Scribe Statement The provider has reviewed the documentation as recorded by the Scribe (Rhina Morillo) All medical record entries made by the Scribe were at my direction and personally dictated by me. I have reviewed the chart and agree that the record accurately reflects my personal performance of the history, physical exam, medical decision making, and the department course for this patient. I have also personally directed, reviewed, and agree with the discharge instructions and disposition.
[2017-09-02] MEDS ORDERED: Sodium Chloride 0.9% 1,000 ML IV ONE (13:27)
[2017-09-02] MEDS ORDERED: Sodium Chloride 0.9% 1,000 ML ONE (13:50)
[2017-09-02] MEDS ORDERED: Morphine 4 MG/ML VIAL ONE (13:50)
[2017-09-02 14:09] LABS: HEMOGLOBIN 11.5 g/dL (11.0-16.0); RBC 4.3 Mil/uL (3.80-5.20); WHITE BLOOD COUNT 12.9 K/uL (4.8-10.8)
[2017-09-02 14:10] LABS: BASO # 0.1 K/uL (0.0-0.2); BASO % 0.9 % (0.0-2.0); EOS # 0.1 K/uL (0.0-0.7); EOS % 0.6 % (0.0-4.0); LYMPH # 1.6 K/uL (1.0-4.3); MEAN CELL VOLUME 81.1 fL (81.0-99.0); MEAN CORPUSCULAR HEMOGLOBIN 26.7 pg (27.0-31.0); MEAN CORPUSCULAR HGB CONC 32.8 g/dL (33.0-37.0); MONO # 0.8 K/uL (0.0-0.8); MONO % 5.9 % (0.0-10.0); NEUT # 10.4 K/uL (1.8-7.0); NEUT % 80.6 % (50.0-75.0); RED CELL DISTRIBUTION WIDTH 19.7 % (11.5-14.5)
[2017-09-02 14:11] LABS: INR 1.3; PROTHROMBIN TIME 14.3 SECONDS (9.7-12.2)
[2017-09-02 14:23] LABS: ALB/GLOB RATIO 1.3 (1.0-2.1); ALBUMIN 3.8 g/dL (3.5-5.0); ALT/SGPT 14 U/L (9-52); AST/SGOT 19 U/L (14-36); BLOOD UREA NITROGEN 47 mg/dL (7-17); CALCIUM 8.7 mg/dl (8.6-10.4); GFR AFRICAN-AMERICAN 43; GFR NON-AFRICAN AMERICAN 36; LIPASE 121 U/L (23-300)
[2017-09-02] MEDS ORDERED: Iodixanol 320 MG/ML 100 ML BOTTLE IV ONE (15:21)
--- NOTE | 2017-09-02 16:27 | CT ---
PROCEDURE: CT Abdomen and Pelvis with contrast HISTORY: abd pain COMPARISON: None. TECHNIQUE: Contrast dose: 100 mL Visipaque 320 Radiation dose: Total exam DLP = 280.8 mGy-cm. This CT exam was performed using one or more of the following dose reduction techniques: Automated exposure control, adjustment of the mA and/or kV according to patient size, and/or use of iterative reconstruction technique. FINDINGS: LOWER THORAX: Cardiomegaly. 5 mm right lower lobe nodule (series 3, image 13). LIVER: Moderate biliary ductal dilatation. No gross lesion. GALLBLADDER AND BILE DUCTS: Prior cholecystectomy. Dilated CBD measuring up to 1.7 cm. PANCREAS: Atrophy. No gross lesion or ductal dilatation. SPLEEN: Nonspecific 7 mm hypervascular focus in the splenic dome (series 3, image 29). ADRENALS: Unremarkable. No mass. KIDNEYS AND URETERS: Unremarkable. No hydronephrosis. No solid mass. VASCULATURE: Calcific atherosclerosis. No aortic aneurysm. BOWEL: Large hiatal hernia. Prior right hemicolectomy with ileocolic anastomosis in the midline. Colonic diverticulosis. No obstruction. No gross mural thickening. APPENDIX: Surgically absent. PERITONEUM: Ventral abdominal wall surgical material. No free fluid. No free air. LYMPH NODES: Unremarkable. No enlarged lymph nodes. BLADDER: Unremarkable. REPRODUCTIVE: Unremarkable. BONES: Grade 1 anterolisthesis of L4 on L5. Multilevel degenerative changes. Old compression deformity of L2. No acute fracture. OTHER FINDINGS: None. IMPRESSION: No acute abdominal pelvic pathology. Prior cholecystectomy with intrahepatic ductal dilatation and dilated CBD, similar in appearance to prior CT scan of the chest performed 07/05/2017. Multiple additional stable findings as above.
[2017-09-02 17:18] VITALS: BP 143/88; PULSE 74; RESP 18; TEMP 98.5
[2017-09-03 00:15] VITALS: O2SAT 97
== END 2017-09-02 17:33 | disposition home or self-care (01) ==
LOC: C.ER 12:50
DX: K50.90 Crohn's disease, unspecified, without complications (principal); R10.9 Unspecified abdominal pain; I10 Essential (primary) hypertension; E78.00 Pure hypercholesterolemia, unspecified; Z87.891 Personal history of nicotine dependence
CPT/HCPCS: 74177; 80053; 83690; 84484; 85025; 85610; 96361; 96374; 96375; 99285; J2270; J2405; J7040; Q9967

== ENCOUNTER 2017-09-08 19:59 | Inpatient (IN) | payer MEDICARE, BC ==
[2017-09-08 20:00] VITALS: PULSE 140; BMI 23.1
[2017-09-08] MEDS ORDERED: Sodium Chloride 0.9% 500 ML IV ONE (20:25)
--- NOTE | 2017-09-08 20:33 | C.PDOC ---
History Of Present Illness 87 y/o female with Hx of HTN, IBD, and hyperlipidemia presents to ED with complaints of generalized weakness and lightheadedness. Patient was seen in ER a few days ago for symptoms of diarrhea and was discharged with negative CT of abdomen results. Patient states today she felt weak and she fell and hit her head. Denies any other physical complaints. Patient lives by herself. Time Seen by Provider: 09/08/17 20:12 Chief Complaint (Nursing): Dizziness/Lightheaded History Per: Patient History/Exam Limitations: no limitations Onset/Duration Of Symptoms: Hrs Current Symptoms Are (Timing): Still Present Associated Symptoms Preceding Syncopal Episode: Lightheadedness Seizure Or Post-ictal Symptoms: None Fall Associated With With Symptoms: Yes (Hit head) Recent travel outside of the [place]: No - Symptoms Of CVA Associated Symptoms: denies: Impaired Speech, Seizure Activity, New Vision Deficit(Left), New Vision Deficit(Right), Decreased Ability To Walk, New Confusion Past Medical History Reviewed: Historical Data, Nursing Documentation, Vital Signs Vital Signs: Last Vital Signs Temp 98.4 F 09/08/17 20:15 Pulse 96 H 09/08/17 20:41 Resp 12 09/08/17 20:41 BP 100/84 09/08/17 20:41 Pulse Ox 98 09/08/17 22:20 - Medical History PMH: Arthritis, Bronchitis, COPD, Crohn's Disease, HTN, Hypercholesterolemia, Hypothyroidism, Obstructive Bowel, Chronic Kidney Disease Surgical History: Appendectomy, Cholecystectomy - [facility] FLUOROSCOPY OF LEFT JUGULAR VEINS, GUIDANCE (05/31/15) GAIT TRAINING/FUNCTIONAL AMBULATION TREATMENT (06/08/15) HOME MANAGEMENT TREATMENT (06/08/15) INSERT INFUSION DEV IN L INT JUGULAR VEIN, PERC (05/31/15) PERFORMANCE OF URINARY FILTRATION, SINGLE (05/31/15) THERAPEUTIC EXERCISE TREATMENT OF MUSCULOSK WHOLE (06/08/15) ULTRASONOGRAPHY OF LEFT JUGULAR VEINS, GUIDANCE (05/31/15) Family History: States: Unknown Family Hx - Social History Hx Tobacco Use: Yes (quit 30 years ago, 20-year history) Hx Alcohol Use: No Hx Substance Use: No - Immunization History Hx Tetanus Toxoid Vaccination: No Hx Influenza Vaccination: Yes Hx Pneumococcal Vaccination: No Review Of Systems Constitutional: Positive for: Weakness (genrealized). Negative for: Fever, Chills Cardiovascular: Negative for: Chest Pain Respiratory: Negative for: Shortness of Breath Gastrointestinal: Negative for: Nausea, Vomiting, Abdominal Pain, Diarrhea Musculoskeletal: Positive for: Other (Fell and hit head) Neurological: Positive for: Other (lightheadedness). Negative for: Weakness, Numbness Physical Exam - Physical Exam Appears: Well, Non-toxic, No Acute Distress Skin: Normal Color, Warm, Dry Head: Atraumatic, Normacephalic Eye(s): bilateral: Normal Inspection Oral Mucosa: Moist Neck: Supple Chest: Symmetrical, No Tenderness Cardiovascular: Rhythm Regular Respiratory: Normal Breath Sounds, No Decreased Breath Sounds, No Rales, No Rhonchi, No Wheezing Gastrointestinal/Abdominal: Soft, No Tenderness, No Distention, No Guarding, No Rebound Extremity: Tenderness (Mild, left knee), No Deformity, Swelling (left knee) Neurological/Psych: Oriented x3, Normal Speech, Normal Cognition ED Course And Treatment - Laboratory Results Result Diagrams: 09/08/17 20:34 09/08/17 20:34 O2 Sat by Pulse Oximetry: 98 (RA) Pulse Ox Interpretation: Normal - Other Rad CXR X-Ray: Viewed By Me, Read By Radiologist Interpretation: EXAM: XR Chest, 1 View. EXAM DATE/TIME: 09/08/2017 8:25 PM. CLINICAL HISTORY: 87 years old, female; Injury or trauma; Fall; Initial encounter; Sprain or strain; Additional info: Chest. pain. TECHNIQUE: Frontal view of the chest. COMPARISON: No relevant prior studies available. FINDINGS: Lungs: No consolidation. Focal linear scarring or atelectasis in the right mid to upper upper lung. laterally. Pleural space: Unremarkable. No pneumothorax. Heart: Unremarkable. No cardiomegaly. Mediastinum: Unremarkable. Bones/joints: No displaced fracture is evident. IMPRESSION: No acute cardiopulmonary process. Knee X-Ray X-Ray: Viewed By Me, Read By Radiologist Interpretation: EXAM: XR Left Knee, 3 views. EXAM DATE/TIME: 09/08/2017 8:25 PM. CLINICAL HISTORY: 87 years old, female; Injury or trauma; Fall; Initial encounter; Sprain or strain; Patella or knee;. Bilateral; Prior surgery; Surgery date: 6+ months. TECHNIQUE: Three views of the left knee. COMPARISON : CR - TIBIA FIBULA LEFT 2015-05-08 13:09. FINDINGS: Bones/joints: Small suprapatellar joint effusion. Total knee arthroplasty. No evidence of acute. hardware failure or complication. No dislocation. No displaced fracture is evident. Soft tissues: Vascular calcifications in the soft tissues. IMPRESSION : Small suprapatellar joint effusion. Otherwise no acute left knee finding. Pelvis X-Ray X-Ray: Viewed By Me, Read By Radiologist Interpretation: EXAM: XR Pelvis, 1 or 2 Views. EXAM DATE/TIME: 09/08/2017 8:25 PM. CLINICAL HISTORY: 87 years old, female; Injury or trauma; Fall; Initial encounter; Sprain or strain; Does not apply; Pelvic. region. TECHNIQUE: Frontal view of the pelvis. COMPARISON: No relevant prior studies available. FINDINGS: Bones/joints: Degenerative changes are present in the lower lumbar spine. No impression. No. displaced fracture or dislocation is evident. Soft tissues: Vascular calcifications in the soft tissues. IMPRESSION: No acute findings. - CT Scan/US CT Head Other Rad Studies (CT/US): Read By Radiologist, Radiology Report Reviewed CT/US Interpretation: EXAM: CT Head Without Intravenous Contrast. EXAM DATE/ TIME: 09/08/2017 8:25 PM. CLINICAL HISTORY: 87 years old, female; Injury or trauma; Fall; Initial encounter; Concussion / head injury. TECHNIQUE: Axial computed tomography images of the head/brain without intravenous contrast. All CT scans at. this facility use one or more dose reduction techniques, viz.: automated exposure control; ma/kV. adjustment per patient size (including targeted exams where dose is matched to indication; i.e. head);. or iterative reconstruction technique. COMPARISON: There are no prior studies for comparison. FINDINGS: Brain: There is dilatation of sulci gyri and ventricles. There is no midline shift. There is decreased. attenuation in periventricular white matter. There are no focal masses. There are no focal. hemorrhages. Traore-white differentiation is visualized. Ventricles: See above. Bones: Cranial vault is intact. Soft tissues: unremarkable. Sinuses: There is debris in the left sphenoid sinus. Ears and mastoids: Middle ears and mastoids are unremarkable. Orbits: Orbital contents are unremarkable. [facility]. [facility]. Final Radiology Report [id number]. Name: LUISANA JARQUIN Age: 87Years F Date: 09/08/2017. SSN: [id number] : 1930. Study: CT HEAD WO Requesting Physician: Oh Ruth. Images: 114. Addl Studies: Provided Clinical History: fall. CONFIDENTIALITY STATEMENT. This transmission is confidential and is intended to be a privileged communication. It is intended only for the use of the addressee. Access to this. message by anyone else is unauthorized. If you are not the intended recipient, any disclosure, copying, distribution or any action taken, or omitted to. be taken in reliance on it is prohibited and may be unlawful. If you received this communication in error, please notify us by telephone, so that return. of this document to us can be arranged. Page 2 of 2. IMPRESSION: Atrophy and small vessel disease, no bleed Medical Decision Making Medical Decision Making: Ordered CT of head, EKG, blood work, CXR, Knee and Pelvis X-Ray, and urinalysis. abd soft no ttp. recent neg ct abd Administered IV fluids. EKG Results: - Sinus tachycardic at 103 bpm - No specific STT changes - Poor tracing pt reassesed abd sfot no ttp. k repleted. wbc baseline, cr/bun baseline. imaging neg. discussed with dr vázquez accepts case as pt lives by herself with fall and weakness at home. needs pt eval for gait dysfunciton. Disposition - Disposition Disposition: HOSPITALIZED Disposition Time: 22:22 Condition: STABLE Forms: [facility] (Hebrew) - Clinical Impression Clinical Impression: Dizziness, Diarrhea, Hypokalemia - Scribe Statement The provider has reviewed the documentation as recorded by the Scribe Terrell Gupta All medical record entries made by the Scribe were at my direction and personally dictated by me. I have reviewed the chart and agree that the record accurately reflects my personal performance of the history, physical exam, medical decision making, and the department course for this patient. I have also personally directed, reviewed, and agree with the discharge instructions and disposition. Decision To Admit - Pt Status Changed To: Hospital Disposition Of: Observation - . Bed Request Type: Regular Admitting Physician: Brodie Chong Patient Diagnosis: Dizziness, Diarrhea, Hypokalemia
[2017-09-08] MEDS ORDERED: Sodium Chloride 0.9% 1,000 ML ONE ×2 (20:35→22:32)
[2017-09-08 20:39] LABS: BASO # 0.2 K/uL (0.0-0.2); BASO % 1.3 % (0.0-2.0); EOS # 0.1 K/uL (0.0-0.7); EOS % 0.9 % (0.0-4.0); HEMOGLOBIN 11.5 g/dL (11.0-16.0); LYMPH # 1.8 K/uL (1.0-4.3); LYMPH % 13.9 % (20.0-40.0); MEAN CELL VOLUME 81.9 fL (81.0-99.0); MEAN CORPUSCULAR HGB CONC 31.8 g/dL (33.0-37.0); MEAN PLATELET VOLUME 9.2 fL (7.2-11.7); MONO # 0.8 K/uL (0.0-0.8); MONO % 6.6 % (0.0-10.0); NEUT # 9.9 K/uL (1.8-7.0); NEUT % 77.3 % (50.0-75.0); NRBC % 0.1 % (0.0-2.0); RBC 4.43 Mil/uL (3.80-5.20); RED CELL DISTRIBUTION WIDTH 20.3 % (11.5-14.5); WHITE BLOOD COUNT 12.8 K/uL (4.8-10.8)
[2017-09-08 20:52] LABS: INR 1.4; PROTHROMBIN TIME 15.5 SECONDS (9.7-12.2)
[2017-09-08 20:56] LABS: ALB/GLOB RATIO 1.3 (1.0-2.1); ALBUMIN 3.5 g/dL (3.5-5.0)
[2017-09-08] MEDS ORDERED: Potassium Chloride 20 mEq ER Tab PO STA (20:57)
[2017-09-08 21:02] LABS: TROPONIN I 0.035 ng/mL (0.00-0.120)
[2017-09-08] MEDS ORDERED: Potassium Chloride 20 mEq ER Tab PO ONE (21:22)
[2017-09-08 22:10] LABS: SQUAMOUS EPITHIAL 1 /hpf (0-5); URINE BACTERIA RARE (<OCC); URINE BILIRUBIN NEGATIVE (NEGATIVE); URINE BLOOD 1+ (NEGATIVE); URINE CLARITY Hazy (Clear); URINE COLOR Yellow (YELLOW); URINE GLUCOSE (UA) NORMAL (Normal); URINE LEUKOCYTE ESTERASE 1+ Leu/uL (Negative); URINE PROTEIN 1+ mg/dL (NEGATIVE); URINE UROBILINOGEN NORMAL mg/dL (0.2-1.0)
--- NOTE | 2017-09-08 22:11 | CT ---
EXAM: CT Head Without Intravenous Contrast EXAM DATE/TIME: 09/08/2017 8:25 PM CLINICAL HISTORY: 87 years old, female; Injury or trauma; Fall; Initial encounter; Concussion / head injury TECHNIQUE: Axial computed tomography images of the head/brain without intravenous contrast. All CT scans at this facility use one or more dose reduction techniques, viz.: automated exposure control; ma/kV adjustment per patient size (including targeted exams where dose is matched to indication; i.e. head); or iterative reconstruction technique. COMPARISON: There are no prior studies for comparison. FINDINGS: Brain: There is dilatation of sulci gyri and ventricles. There is no midline shift. There is decreased attenuation in periventricular white matter. There are no focal masses. There are no focal hemorrhages. Traore-white differentiation is visualized. Ventricles: See above. Bones: Cranial vault is intact. Soft tissues: unremarkable Sinuses: There is debris in the left sphenoid sinus Ears and mastoids: Middle ears and mastoids are unremarkable. Orbits: Orbital contents are unremarkable. IMPRESSION: Atrophy and small vessel disease, no bleed
[2017-09-08] MEDS ORDERED: cefTRIAXone IV 1 gm in Dextros 50 ML IVPB ONE (22:17)
[2017-09-08] MEDS ORDERED: ACETAMINOPHEN PO PRN (22:18)
[2017-09-08] MEDS ORDERED: HYDROCODONE PO PRN (22:18)
[2017-09-08] MEDS: Morphine 15 mg SR Tab PO SCH (22:42)
--- NOTE | 2017-09-08 23:09 | CP.PCM.HP ---
History of Present Illness - History of Present Illness History of Present Illness: Chief Complaint : Dizziness/Lightheaded History Of Present Illness 87 y/o female with Hx of HTN, IBD, and hyperlipidemia presents to ED with complaints of generalized weakness and lightheadedness. Patient was seen in ER a few days ago for symptoms of diarrhea and was discharged with negative CT of abdomen results. Patient states today she felt weak and she fell and hit her head. Denies any other physical complaints. Patient lives by herself. Past Patient History - Infectious Disease Hx of Infectious Diseases: None - Past Medical History & Family History Past Medical History?: Yes - Past Social History Smoking Status: Former Smoker - CARDIAC Hx Hypercholesterolemia: Yes Hx Hypertension: Yes - PULMONARY Hx Bronchitis: Yes Hx Chronic Obstructive Pulmonary Disease (COPD): Yes - NEUROLOGICAL Hx Neurological Disorder: No - HEENT Hx HEENT Problems: No - RENAL Hx Chronic Kidney Disease: Yes - ENDOCRINE/METABOLIC Hx Hypothyroidism: Yes - HEMATOLOGICAL/ONCOLOGICAL Hx Blood Disorders: No - INTEGUMENTARY Hx Dermatological Problems: No - MUSCULOSKELETAL/RHEUMATOLOGICAL Hx Arthritis: Yes - GASTROINTESTINAL Hx Crohn's Disease: Yes - GENITOURINARY/GYNECOLOGICAL Hx Genitourinary Disorders: No - PSYCHIATRIC Hx Substance Use: No - SURGICAL HISTORY Hx Appendectomy: Yes Hx Cholecystectomy: Yes - ANESTHESIA Hx Anesthesia: Yes Hx Anesthesia Reactions: No Hx Malignant Hyperthermia: No Meds Allergies/Adverse Reactions: Allergies Allergy/AdvReac Type Severity Reaction Status Date / Time No Known Allergies Allergy Verified 09/08/17 20:14 Results - Vital Signs Recent Vital Signs: Last Vital Signs Temp 98.4 F 09/08/17 20:15 Pulse 91 H 09/08/17 22:44 Resp 12 09/08/17 22:44 BP 169/74 H 09/08/17 22:44 Pulse Ox 99 09/08/17 22:44 - Labs Result Diagrams: 09/08/17 20:34 09/08/17 20:34 Labs: Laboratory Results - last 24 hr 09/08/17 09/08/17 09/08/17 20:04 20:34 20:34 WBC 12.8 H RBC 4.43 Hgb 11.5 Hct 36.2 MCV 81.9 MCH 26.0 L MCHC 31.8 L RDW 20.3 H Plt Count 392 MPV 9.2 Neut % (Auto) 77.3 H Lymph % (Auto) 13.9 L [place] % (Auto) 6.6 Eos % (Auto) 0.9 Baso % (Auto) 1.3 Neut # (Auto) 9.9 H Lymph # (Auto) 1.8 [place] # (Auto) 0.8 Eos # (Auto) 0.1 Baso # (Auto) 0.2 PT 15.5 H INR 1.4 APTT 32 Sodium Potassium Chloride Carbon Dioxide Anion Gap BUN Creatinine Est GFR ( Amer) Est GFR (Non-Af Amer) POC Glucose (mg/dL) 141 H Random Glucose Calcium Total Bilirubin AST ALT Alkaline Phosphatase Total Creatine Kinase Troponin I Total Protein Albumin Globulin Albumin/Globulin Ratio Urine Color Urine Clarity Urine pH Ur Specific [place] Urine Protein Urine Glucose (UA) Urine Ketones Urine Blood Urine Nitrate Urine Bilirubin Urine Urobilinogen Ur Leukocyte Esterase Urine WBC (Auto) Urine RBC (Auto) Ur Squamous Epith Cells Urine Bacteria Hyaline Casts 09/08/17 09/08/17 20:34 21:54 WBC RBC Hgb Hct MCV MCH MCHC RDW Plt Count MPV Neut % (Auto) Lymph % (Auto) [place] % (Auto) Eos % (Auto) Baso % (Auto) Neut # (Auto) Lymph # (Auto) [place] # (Auto) Eos # (Auto) Baso # (Auto) PT INR APTT Sodium 140 Potassium 2.8 L Chloride 104 Carbon Dioxide 17 L Anion Gap 22 H BUN 58 H Creatinine 1.7 H Est GFR ( Amer) 34 Est GFR (Non-Af Amer) 28 POC Glucose (mg/dL) Random Glucose 137 H Calcium 9.0 Total Bilirubin 1.0 AST 29 ALT 28 Alkaline Phosphatase 106 Total Creatine Kinase 75 Troponin I 0.0350 Total Protein 6.1 L Albumin 3.5 Globulin 2.6 Albumin/Globulin Ratio 1.3 Urine Color Yellow Urine Clarity Hazy Urine pH 5.0 Ur Specific [place] 1.012 Urine Protein 1+ H Urine Glucose (UA) Normal Urine Ketones Negative Urine Blood 1+ H Urine Nitrate Negative Urine Bilirubin Negative Urine Urobilinogen Normal Ur Leukocyte Esterase 1+ H Urine WBC (Auto) 44 H Urine RBC (Auto) 4 H Ur Squamous Epith Cells 1 Urine Bacteria Rare Hyaline Casts 6-10 H
[2017-09-08] MEDS: Sodium Chloride 0.9% 1,000 ML IV SCH (23:36)
[2017-09-09] MEDS: Levothyroxine 100 MCG TAB PO SCH (05:58)
[2017-09-09] MEDS: Sodium Chloride 0.9% 1,000 ML IV SCH ×3 (08:30→18:11)
--- NOTE | 2017-09-09 08:58 | RAD ---
HISTORY: chest pain COMPARISON: Chest x-ray performed 08/02/17 TECHNIQUE: Chest, one view. FINDINGS: LUNGS: Right apical pleural thickening. Scarring or atelectasis within the right mid to upper right lung zone. Please note that chest x-ray has limited sensitivity for the detection of pulmonary masses. Moderate-sized hiatal hernia. PLEURA: No significant pleural effusion identified. An oblique lucency noted at the lateral right lung zone may reflect artifact as there appear to be lung markings peripheral to this finding rather than pneumothorax. CARDIOVASCULAR: Heart size appears within normal limits. Dense atherosclerotic calcifications of an ectatic aorta. OSSEOUS STRUCTURES: Degenerative changes. VISUALIZED UPPER ABDOMEN: Retrocardiac opacity consistent with moderate size hiatal hernia. OTHER FINDINGS: None. IMPRESSION: Right apical pleural thickening. Scarring or atelectasis within the mid to upper right lung zone. An oblique lucency noted at the lateral right lung zone may reflect artifact as there appear to be lung markings peripheral to this finding rather than pneumothorax. Retrocardiac opacity consistent with moderate-sized hiatal hernia. Preliminary impression was provided by [facility].
--- NOTE | 2017-09-09 08:59 | RAD ---
Left knee radiographs Indication: Fall Comparison: None available Findings: Total knee arthroplasty. Small suprapatellar joint effusion. No acute displaced fracture identified. No dislocation. No definite evidence of acute hardware failure or complication. Dense vascular calcifications. Osseous demineralization. Impression: Small suprapatellar joint effusion. Preliminary impression was provided by [facility].
--- NOTE | 2017-09-09 09:01 | RAD ---
Pelvis radiograph, one view Comparison: CT abdomen and pelvis with contrast performed 09/02/17 Indication: Fall Findings: Diffuse osseous demineralization limits evaluation for acute fractures. Degenerative changes involving the lower lumbar spine and bilateral hip joints/pelvis. Joint space narrowing of bilateral hip joints. No acute displaced fracture appreciated. Dense vascular calcifications. Impression: Diffuse osseous demineralization limits evaluation for acute fracture lines. Extensive degenerative changes. No acute displaced fracture appreciated. If high clinical index of suspicion for occult fracture, recommend MRI for further evaluation. Preliminary impression was provided by [facility].
[2017-09-09] MEDS ORDERED: ELUXADOLINE 75 MG PO SCH (10:00)
[2017-09-09] MEDS: Pantoprazole 40 mg EC Tab PO SCH (10:20)
[2017-09-09] MEDS: Morphine 15 mg SR Tab PO SCH ×2 (10:27→21:46)
[2017-09-09 11:30] LABS: BASO # 0.1 K/uL (0.0-0.2); EOS # 0.4 K/uL (0.0-0.7); EOS % 3.1 % (0.0-4.0); HEMOGLOBIN 9.7 g/dL (11.0-16.0); LYMPH # 1.5 K/uL (1.0-4.3); LYMPH % 11.8 % (20.0-40.0); MEAN CORPUSCULAR HEMOGLOBIN 26.4 pg (27.0-31.0); MEAN PLATELET VOLUME 9.7 fL (7.2-11.7); MONO # 1.2 K/uL (0.0-0.8); MONO % 9.4 % (0.0-10.0); NEUT # 9.2 K/uL (1.8-7.0); NEUT % 74.7 % (50.0-75.0); NRBC % 0.1 % (0.0-2.0); RBC 3.69 Mil/uL (3.80-5.20); RED CELL DISTRIBUTION WIDTH 19.6 % (11.5-14.5); WHITE BLOOD COUNT 12.3 K/uL (4.8-10.8)
[2017-09-09 11:43] LABS: ALB/GLOB RATIO 1.1 (1.0-2.1); ALBUMIN 2.6 g/dL (3.5-5.0); CALCIUM 8.5 mg/dl (8.6-10.4)
[2017-09-09] MEDS ORDERED: Potassium Chloride 20 mEq ER Tab PO STA (12:28)
[2017-09-09 17:17] LABS: ALB/GLOB RATIO 1.2 (1.0-2.1); ALBUMIN 2.8 g/dL (3.5-5.0); CALCIUM 8.5 mg/dl (8.6-10.4)
--- NOTE | 2017-09-10 00:49 | PN ---
DATE: SUBJECTIVE: The patient is more alert. She feels somewhat better. She denies any shortness of breath or chest pain. She denies any nausea or vomiting. PHYSICAL EXAMINATION: VITAL SIGNS: Blood pressure is still low 105/59, pulse 72, respiratory rate 20, temperature 98.3. LUNGS: Clear. CVS: S1, S2 regular. ABDOMEN: Soft. ASSESSMENT: 1. Dehydration, prerenal azotemia most likely due to diuretics. 2. Urinary tract infection, pending urine culture. 3. Hypertension. PLAN: I reduced the patient's blood pressure medication further. We are giving her IV fluids with potassium. The patient is on antibiotics, pending urine cultures. The patient agrees with reducing her medications of blood pressure and we will monitor the patient in the meantime. Brodie Chong MD
[2017-09-10] MEDS: Sodium Chloride 0.9% 1,000 ML IV SCH ×2 (04:16→14:03)
[2017-09-10] MEDS: Levothyroxine 100 MCG TAB PO SCH (05:49)
[2017-09-10 07:16] LABS: BASO # 0.1 K/uL (0.0-0.2); BASO % 0.9 % (0.0-2.0); EOS # 0.4 K/uL (0.0-0.7); EOS % 3.1 % (0.0-4.0); HEMOGLOBIN 8.6 g/dL (11.0-16.0); LYMPH # 1.1 K/uL (1.0-4.3); LYMPH % 9.4 % (20.0-40.0); MEAN CELL VOLUME 80.1 fL (81.0-99.0); MEAN CORPUSCULAR HEMOGLOBIN 26.5 pg (27.0-31.0); MEAN CORPUSCULAR HGB CONC 33.1 g/dL (33.0-37.0); MEAN PLATELET VOLUME 9.3 fL (7.2-11.7); MONO # 1.1 K/uL (0.0-0.8); MONO % 8.6 % (0.0-10.0); NEUT # 9.5 K/uL (1.8-7.0); PLATELET COUNT 219 K/uL (130-400); RBC 3.24 Mil/uL (3.80-5.20); RED CELL DISTRIBUTION WIDTH 20.3 % (11.5-14.5); WHITE BLOOD COUNT 12.2 K/uL (4.8-10.8)
[2017-09-10 07:56] LABS: ALBUMIN 2.1 g/dL (3.5-5.0); CALCIUM 7.7 mg/dl (8.6-10.4)
[2017-09-10 08:52] LABS: ANISOCYTOSIS MODERATE; BURR CELLS SLIGHT; EOSINOPHIL 4 % (0-4); HYPOCHROMIC SLIGHT; LYMPHOCYTE 8 % (20-40); MONOCYTE 5 % (0-10); NEUTROPHIL 83 % (50-75); OVALOCYTES SLIGHT; PLATELET ESTIMATE NORMAL (NORMAL); POIKILOCYTOSIS SLIGHT; POLYCHROMIC SLIGHT; SCHISTOCYTES SLIGHT; TOTAL CELLS COUNTED 100
[2017-09-10 08:53] LABS: TOXIC GRANULATION PRESENT
[2017-09-10 08:54] LABS: LARGE PLATELETS PRESENT
[2017-09-10] MEDS: Morphine 15 mg SR Tab PO SCH ×2 (10:10→21:37)
[2017-09-10] MEDS: Pantoprazole 40 mg EC Tab PO SCH (10:10)
--- NOTE | 2017-09-10 22:22 | CP.PCM.PN ---
Subjective - Date & Time of Evaluation Date of Evaluation: 09/10/17 Time of Evaluation: 18:00 - Subjective Subjective: Pt is seen and evaluated during routine follow up rounds today Objective - Vital Signs/Intake and Output Vital Signs (last 24 hours): Temp Pulse Resp BP Pulse Ox 98 F 61 20 160/78 H 95 09/10/17 15:00 09/10/17 15:00 09/10/17 15:00 09/10/17 21:33 09/10/17 15:00 Intake and Output: 09/10/17 09/11/17 18:59 06:59 Intake Total 2200 Balance 2200 - Medications Medications: Current Medications Heparin Sodium (Porcine) (Heparin) 5,000 units SC Q12 [facility] Last Admin: 09/10/17 21:33 Dose: 5,000 units Home Med (Eluxadoline [Viberzi]) 75 mg PO BID [facility] Home Med (Hydrocodone/Acetaminophen [Hydrocodone-Acetamin 10-300 Mg]) 1 each PO Q4H PRN PRN Reason: Pain, severe (8-10) Levothyroxine Sodium (Synthroid) 100 mcg PO DAILY@0630 [facility] Last Admin: 09/10/17 05:49 Dose: 100 mcg Mesalamine (Delzicol Dr) 800 mg PO TID [facility] Last Admin: 09/10/17 17:34 Dose: 800 mg Metoprolol Tartrate (Lopressor) 25 mg PO Q12H [facility] Last Admin: 09/10/17 21:33 Dose: 25 mg Morphine Sulfate (Morphine Extended Release Tab) 15 mg PO Q12H [facility] Last Admin: 09/10/17 21:37 Dose: 15 mg Pantoprazole Sodium (Protonix Ec Tab) 40 mg PO DAILY [facility] Last Admin: 09/10/17 10:10 Dose: 40 mg Pneumococcal Polyvalent Vaccine (Pneumovax 23 Vaccine) 0.5 ml IM .ONCE ONE Stop: 09/11/17 10:01 Rosuvastatin Calcium (Crestor) 10 mg PO HS [facility] Last Admin: 09/10/17 21:32 Dose: 10 mg Sertraline HCl (Zoloft) 50 mg PO DAILY [facility] Last Admin: 09/10/17 10:10 Dose: 50 mg - Labs Labs: 09/10/17 07:04 09/10/17 07:04 PT 15.5 SECONDS (9.7-12.2) H 09/08/17 20:34 INR 1.4 09/08/17 20:34 APTT 32 SECONDS (21-34) 09/08/17 20:34
[2017-09-11] MEDS: Levothyroxine 100 MCG TAB PO SCH (05:42)
[2017-09-11] MEDS: Pantoprazole 40 mg EC Tab PO SCH (09:51)
[2017-09-11] MEDS: Morphine 15 mg SR Tab PO SCH ×2 (09:58→22:03)
[2017-09-11] MEDS ORDERED: Pneumococcal 23-Valent Vaccine IM ONE (10:00)
[2017-09-11] MEDS: Sodium Chloride 0.9% 1,000 ML IV SCH (14:00)
--- NOTE | 2017-09-11 16:20 | CP.PCM.CON ---
History of Present Illness - History of Present Illness History of Present Illness: CC: Diarrhea HPI: GI consult requested for chronic diarrhea. Patient has a remote history of Crohn's Disease, S/P Right Hemicolectomy, Cholecystectomy, numerous rounds of antibiotics, now with chronic watery diarrhea impacted her lifestyle and appetitie, and also necessitating hospital admissions for dehydration. Patient was last seen in our office by Dr Krishnamurthy in 2013, and at that time had a colon polyp, and required colonoscopy for removal but refused . She denies blood in stool. Appetite is poor. Patient is anemic. Denies abdominal pains, fevers, chills. Review of Systems - Constitutional Constitutional: Anorexia, Fatigue, Weight Loss. absent: Chills, Fever - EENT Eyes: absent: Change in Vision Ears: absent: Abnormal Hearing Nose/Mouth/Throat: absent: Epistaxis - Cardiovascular Cardiovascular: absent: Chest Pain - Respiratory Respiratory: absent: Cough - Gastrointestinal Gastrointestinal: Diarrhea, Loose Stools. absent: Abdominal Pain, Constipation , Hematochezia, Melena - Genitourinary Genitourinary: absent: Dysuria - Musculoskeletal Musculoskeletal: absent: Back Pain - Integumentary Integumentary: absent: Lesions - Neurological Neurological: Weakness. absent: Abnormal Hearing - Psychiatric Psychiatric: absent: Anxiety - Hematologic/Lymphatic Hematologic: absent: Easy Bruising Past Patient History - Infectious Disease Hx of Infectious Diseases: None - Past Medical History & Family History Past Medical History?: Yes - Past Social History Smoking Status: Former Smoker - CARDIAC Hx Hypercholesterolemia: Yes Hx Hypertension: Yes - PULMONARY Hx Chronic Obstructive Pulmonary Disease (COPD): Yes - NEUROLOGICAL Hx Neurological Disorder: No - HEENT Hx HEENT Problems: No - RENAL Hx Chronic Kidney Disease: Yes - ENDOCRINE/METABOLIC Hx Hypothyroidism: Yes - HEMATOLOGICAL/ONCOLOGICAL Hx Blood Disorders: No - INTEGUMENTARY Hx Dermatological Problems: No - MUSCULOSKELETAL/RHEUMATOLOGICAL Hx Arthritis: Yes (knee, hx bl tkr) - GASTROINTESTINAL Hx Crohn's Disease: Yes - GENITOURINARY/GYNECOLOGICAL Hx Genitourinary Disorders: No - PSYCHIATRIC Hx Substance Use: No - SURGICAL HISTORY Hx Appendectomy: Yes Hx Cholecystectomy: Yes - ANESTHESIA Hx Anesthesia: Yes Hx Anesthesia Reactions: No Hx Malignant Hyperthermia: No Meds Allergies/Adverse Reactions: Allergies Allergy/AdvReac Type Severity Reaction Status Date / Time No Known Allergies Allergy Verified 09/08/17 20:14 - Medications Medications: Current Medications Heparin Sodium (Porcine) (Heparin) 5,000 units SC Q12 [facility] Last Admin: 09/11/17 09:52 Dose: 5,000 units Sodium Chloride (Sodium Chloride 0.9%) 1,000 mls @ 55 mls/hr IV .[id number] [facility] Last Admin: 09/11/17 14:00 Dose: 55 mls/hr Levothyroxine Sodium (Synthroid) 100 mcg PO DAILY@0630 [facility] Last Admin: 09/11/17 05:42 Dose: 100 mcg Mesalamine (Delzicol Dr) 800 mg PO TID [facility] Last Admin: 09/11/17 14:01 Dose: 800 mg Metoprolol Tartrate (Lopressor) 25 mg PO Q12H [facility] Last Admin: 09/11/17 09:51 Dose: 25 mg Morphine Sulfate (Morphine Extended Release Tab) 15 mg PO Q12H [facility] Last Admin: 09/11/17 09:58 Dose: 15 mg Pantoprazole Sodium (Protonix Ec Tab) 40 mg PO DAILY [facility] Last Admin: 09/11/17 09:51 Dose: 40 mg Pneumococcal Polyvalent Vaccine (Pneumovax 23 Vaccine) 0.5 ml IM .ONCE ONE Stop: 09/13/17 10:01 Rosuvastatin Calcium (Crestor) 10 mg PO HS [facility] Last Admin: 09/10/17 21:32 Dose: 10 mg Sertraline HCl (Zoloft) 50 mg PO DAILY [facility] Last Admin: 09/11/17 09:52 Dose: 50 mg Physical Exam - Constitutional Appears: No Acute Distress, Younger Than Stated Age - Head Exam Head Exam: ATRAUMATIC, NORMOCEPHALIC - Eye Exam Eye Exam: Normal appearance. absent: Scleral icterus - ENT Exam ENT Exam: Normal Exam - Neck Exam Neck exam: Positive for: Normal Inspection. Negative for: Meningismus, Thyromegaly - Respiratory Exam Respiratory Exam: Clear to Auscultation Bilateral - Cardiovascular Exam Cardiovascular Exam: REGULAR RHYTHM, RRR. absent: Systolic Murmur - GI/Abdominal Exam GI & Abdominal Exam: Soft. absent: Distended, Guarding, Mass, Rebound, Tenderness - Rectal Exam Rectal Exam: Deferred - Extremities Exam Extremities exam: Positive for: normal inspection - Back Exam Back exam: absent: CVA tenderness (R) - Neurological Exam Neurological exam: Alert, Oriented x3 - Psychiatric Exam Psychiatric exam: Normal Affect, Normal Mood - Skin Skin Exam: Normal Color, Warm Results - Vital Signs Recent Vital Signs: Last Vital Signs Temp 98.8 F 09/11/17 15:45 Pulse 71 09/11/17 15:45 Resp 20 09/11/17 15:45 BP 111/70 09/11/17 15:45 Pulse Ox 95 09/11/17 15:45 - Labs Result Diagrams: 09/10/17 07:04 09/10/17 07:04 Assessment & Plan (1) Diarrhea Assessment and Plan: Chronic diarrhea- at risk for numerous conditions including CDiff, Malabsorption , Post-colectomy diarrhea, Bile malabsorption, SB bacterial overgrowth Recommend: Stool studies and labwork as ordered. Patient does not want invasive workup. Discussed with her daughter. Status: Acute (2) Crohn disease Assessment and Plan: Seems quiescent however may be a cause of malabsorptive diarrhea. On oral 5-ASA . Will assess disease actively via CRP level, IBD serology , and fecal Calprotectin. Patient wishes to avoid colonoscopy. Not unreasonable decision in an 87 year old patient. Status: Acute (3) History of colonic polyps Assessment and Plan: Refused colonoscopy in 2013 as follow up to piecemeal polypectomy. Still refuses Status: Acute (4) Diverticulosis Assessment and Plan: Seems stable at present Status: Acute
--- NOTE | 2017-09-11 16:40 | CARD ---
APPROVED REPORT EKG Measurement Heart [id number] <Conclusion> Sinus tachycardia with occasional premature ventricular complexes Possible Left atrial enlargement Left axis deviation Septal infarct, age undetermined ST & T wave abnormality, consider inferolateral ischemia Abnormal ECG
--- NOTE | 2017-09-11 22:42 | CP.PCM.PN ---
Subjective - Date & Time of Evaluation Date of Evaluation: 09/11/17 Time of Evaluation: 19:45 - Subjective Subjective: Pt seen and examined at bedside, pt is feeling better, no nausea, vomiting, on zofran PRN and medical management Objective - Vital Signs/Intake and Output Vital Signs (last 24 hours): Temp Pulse Resp BP Pulse Ox 98.8 F 71 20 151/71 H 95 09/11/17 15:45 09/11/17 15:45 09/11/17 15:45 09/11/17 22:12 09/11/17 15:45 Intake and Output: 09/11/17 09/12/17 18:59 06:59 Intake Total 1340 440 Balance 1340 440 - Medications Medications: Current Medications Heparin Sodium (Porcine) (Heparin) 5,000 units SC Q12 [facility] Last Admin: 09/11/17 21:10 Dose: 5,000 units Sodium Chloride (Sodium Chloride 0.9%) 1,000 mls @ 55 mls/hr IV .[id number] [facility] Last Admin: 09/11/17 14:00 Dose: 55 mls/hr Levothyroxine Sodium (Synthroid) 100 mcg PO DAILY@0630 [facility] Last Admin: 09/11/17 05:42 Dose: 100 mcg Mesalamine (Delzicol Dr) 800 mg PO TID [facility] Last Admin: 09/11/17 17:44 Dose: 800 mg Metoprolol Tartrate (Lopressor) 25 mg PO Q12H [facility] Last Admin: 09/11/17 22:12 Dose: 25 mg Morphine Sulfate (Morphine Extended Release Tab) 15 mg PO Q12H [facility] Last Admin: 09/11/17 22:03 Dose: 15 mg Pantoprazole Sodium (Protonix Ec Tab) 40 mg PO DAILY [facility] Last Admin: 09/11/17 09:51 Dose: 40 mg Pneumococcal Polyvalent Vaccine (Pneumovax 23 Vaccine) 0.5 ml IM .ONCE ONE Stop: 09/13/17 10:01 Rifaximin (Xifaxan) 200 mg PO Q8 [facility] Stop: 09/13/17 16:35 Last Admin: 09/11/17 22:06 Dose: 200 mg Rosuvastatin Calcium (Crestor) 10 mg PO HS [facility] Last Admin: 09/11/17 21:05 Dose: 10 mg Sertraline HCl (Zoloft) 50 mg PO DAILY [facility] Last Admin: 09/11/17 09:52 Dose: 50 mg - Labs Labs: 09/10/17 07:04 09/10/17 07:04 PT 15.5 SECONDS (9.7-12.2) H 09/08/17 20:34 INR 1.4 09/08/17 20:34 APTT 32 SECONDS (21-34) 09/08/17 20:34 - Constitutional Appears: No Acute Distress - Head Exam Head Exam: ATRAUMATIC, NORMAL INSPECTION, NORMOCEPHALIC - Eye Exam Eye Exam: EOMI, Normal appearance, PERRL Pupil Exam: NORMAL ACCOMODATION, PERRL - Respiratory Exam Respiratory Exam: Clear to Ausculation Bilateral, NORMAL BREATHING PATTERN - Cardiovascular Exam Cardiovascular Exam: REGULAR RHYTHM, +S1, +S2. absent: Murmur - GI/Abdominal Exam GI & Abdominal Exam: Soft, Normal Bowel Sounds. absent: Tenderness Assessment and Plan (1) Dizziness Status: Acute (2) Abdominal pain Status: Acute (3) Acute diverticulitis Status: Acute
[2017-09-12] MEDS: Levothyroxine 100 MCG TAB PO SCH (05:34)
[2017-09-12] MEDS: Sodium Chloride 0.9% 1,000 ML IV SCH (07:01)
[2017-09-12 07:58] VITALS: RESP 20
[2017-09-12 08:52] LABS: BLOOD UREA NITROGEN 21 mg/dL (7-17); CALCIUM 7.6 mg/dl (8.6-10.4); GFR AFRICAN-AMERICAN > 60; GFR NON-AFRICAN AMERICAN 59
--- NOTE | 2017-09-12 08:54 | CP.PCM.PN ---
Subjective - Date & Time of Evaluation Date of Evaluation: 09/12/17 Time of Evaluation: 08:51 - Subjective Subjective: F/U diarrhea. Mult loose stools daily- chronic Denies abdom pain, fever, chills, AVELAR, Rb, melena, hematuria, hemoptysis Objective - Vital Signs/Intake and Output Vital Signs (last 24 hours): Temp Pulse Resp BP Pulse Ox 97.9 F 74 20 143/82 96 09/12/17 07:55 09/12/17 07:55 09/12/17 07:55 09/12/17 07:55 09/12/17 07:55 Intake and Output: 09/12/17 09/12/17 06:59 18:59 Intake Total 440 Balance 440 - Medications Medications: Current Medications Heparin Sodium (Porcine) (Heparin) 5,000 units SC Q12 [facility] Last Admin: 09/11/17 21:10 Dose: 5,000 units Sodium Chloride (Sodium Chloride 0.9%) 1,000 mls @ 55 mls/hr IV .[id number] [facility] Last Admin: 09/12/17 07:01 Dose: 55 mls/hr Levothyroxine Sodium (Synthroid) 100 mcg PO DAILY@0630 [facility] Last Admin: 09/12/17 05:34 Dose: 100 mcg Mesalamine (Delzicol Dr) 800 mg PO TID [facility] Last Admin: 09/11/17 17:44 Dose: 800 mg Metoprolol Tartrate (Lopressor) 25 mg PO Q12H [facility] Last Admin: 09/11/17 22:12 Dose: 25 mg Morphine Sulfate (Morphine Extended Release Tab) 15 mg PO Q12H [facility] Last Admin: 09/11/17 22:03 Dose: 15 mg Pantoprazole Sodium (Protonix Ec Tab) 40 mg PO DAILY [facility] Last Admin: 09/11/17 09:51 Dose: 40 mg Pneumococcal Polyvalent Vaccine (Pneumovax 23 Vaccine) 0.5 ml IM .ONCE ONE Stop: 09/13/17 10:01 Rifaximin (Xifaxan) 200 mg PO Q8 [facility] Stop: 09/13/17 16:35 Last Admin: 09/12/17 05:35 Dose: 200 mg Rosuvastatin Calcium (Crestor) 10 mg PO HS [facility] Last Admin: 09/11/17 21:05 Dose: 10 mg Sertraline HCl (Zoloft) 50 mg PO DAILY [facility] Last Admin: 09/11/17 09:52 Dose: 50 mg - Labs Labs: 09/10/17 07:04 09/10/17 07:04 PT 15.5 SECONDS (9.7-12.2) H 09/08/17 20:34 INR 1.4 09/08/17 20:34 APTT 32 SECONDS (21-34) 09/08/17 20:34 - Constitutional Appears: Non-toxic - Neck Exam Neck Exam: absent: Tenderness - Respiratory Exam Respiratory Exam: Clear to Ausculation Bilateral - Cardiovascular Exam Cardiovascular Exam: RRR - GI/Abdominal Exam GI & Abdominal Exam: Soft, Normal Bowel Sounds. absent: Guarding, Tenderness, Mass, Rebound - Extremities Exam Extremities Exam: absent: Calf Tenderness - Neurological Exam Neurological Exam: Alert, Oriented x3 Assessment and Plan (1) Diarrhea Assessment & Plan: Chronic. H/o crohns- on 5-ASA. Check labs. Xifaxan added. Status: Acute (2) Diverticulosis Status: Acute (3) History of colonic polyps Assessment & Plan: s/p partial polypectomy years ago. Patient has been refusing follow up colonosocpy. Discussed risk of cancer. Status: Acute (4) COPD (chronic obstructive pulmonary disease) Status: Acute (5) Crohn disease Assessment & Plan: Check past work up. On meds . Check labs/stools Status: Acute
[2017-09-12 09:55] LABS: FOLATE 5.7 ng/mL
[2017-09-12] MEDS: Pantoprazole 40 mg EC Tab PO SCH (11:15)
[2017-09-12] MEDS: Morphine 15 mg SR Tab PO SCH ×2 (11:21→21:48)
[2017-09-12] MEDS ORDERED: Potassium Chloride 20 mEq/15 ml LIQ UD PO STA (12:38)
[2017-09-12 12:58] LABS: BASO # 0.1 K/uL (0.0-0.2); BASO % 0.7 % (0.0-2.0); EOS # 0.4 K/uL (0.0-0.7); LYMPH # 1.4 K/uL (1.0-4.3); LYMPH % 7.6 % (20.0-40.0); MEAN CORPUSCULAR HEMOGLOBIN 26.2 pg (27.0-31.0); MEAN CORPUSCULAR HGB CONC 31.4 g/dL (33.0-37.0); MEAN PLATELET VOLUME 10.5 fL (7.2-11.7); MONO # 1.3 K/uL (0.0-0.8); MONO % 7.3 % (0.0-10.0); NEUT % 82.4 % (50.0-75.0); NRBC % 0.1 % (0.0-2.0); PLATELET COUNT 225 K/uL (130-400); RBC 4.04 Mil/uL (3.80-5.20); WHITE BLOOD COUNT 18.2 K/uL (4.8-10.8)
[2017-09-12 12:59] LABS: HEMOGLOBIN 10.6 g/dL (11.0-16.0)
[2017-09-12 13:00] LABS: MEAN CELL VOLUME 83.4 fL (81.0-99.0)
[2017-09-12 13:46] LABS: ANISOCYTOSIS SLIGHT; BASOPHIL 1 % (0-2); EOSINOPHIL 1 % (0-4); LYMPHOCYTE 4 % (20-40); MONOCYTE 3 % (0-10); NEUTROPHIL 91 % (50-75); NUCLEATED RED BLOOD CELL 1 % (0-0); PLATELET ESTIMATE NORMAL (NORMAL); POIKILOCYTOSIS SLIGHT; TOTAL CELLS COUNTED 100
[2017-09-12 13:47] LABS: BURR CELLS SLIGHT; HYPOCHROMIC SLIGHT; TEARDROP CELLS SLIGHT
[2017-09-12 13:48] LABS: OVALOCYTES SLIGHT; TARGET CELLS SLIGHT
[2017-09-12 13:49] LABS: LARGE PLATELETS PRESENT
--- NOTE | 2017-09-12 23:37 | CP.PCM.PN ---
Subjective - Date & Time of Evaluation Date of Evaluation: 09/12/17 Time of Evaluation: 19:00 - Subjective Subjective: Pt seen and examined today during routine follow up rounds, pt is started on Physical therapy, she is weak, denies any headache, is feeling better Objective - Vital Signs/Intake and Output Vital Signs (last 24 hours): Temp Pulse Resp BP Pulse Ox 98.2 F 67 20 126/67 99 09/12/17 16:00 09/12/17 16:00 09/12/17 16:00 09/12/17 21:47 09/12/17 16:00 Intake and Output: 09/12/17 09/13/17 18:59 06:59 Intake Total 690 Output Total 1 Balance 689 - Medications Medications: Current Medications Heparin Sodium (Porcine) (Heparin) 5,000 units SC Q12 [facility] Last Admin: 09/12/17 21:50 Dose: 5,000 units Sodium Chloride (Sodium Chloride 0.9%) 1,000 mls @ 55 mls/hr IV .[id number] [facility] Last Admin: 09/12/17 07:01 Dose: 55 mls/hr Ceftriaxone Sodium 1 gm/ (Sodium Chloride) 100 mls @ 100 mls/hr IVPB DAILY [facility] PRN Reason: Protocol Last Admin: 09/12/17 22:11 Dose: 100 mls/hr Levothyroxine Sodium (Synthroid) 100 mcg PO DAILY@0630 [facility] Last Admin: 09/12/17 05:34 Dose: 100 mcg Mesalamine (Delzicol Dr) 800 mg PO TID [facility] Last Admin: 09/12/17 17:45 Dose: 800 mg Metoprolol Tartrate (Lopressor) 25 mg PO Q12H [facility] Last Admin: 09/12/17 21:47 Dose: 25 mg Metronidazole (Flagyl) 500 mg PO Q8 [facility] PRN Reason: Protocol Last Admin: 09/12/17 21:47 Dose: 500 mg Morphine Sulfate (Morphine Extended Release Tab) 15 mg PO Q12H [facility] Last Admin: 09/12/17 21:48 Dose: 15 mg Pantoprazole Sodium (Protonix Ec Tab) 40 mg PO DAILY [facility] Last Admin: 09/12/17 11:15 Dose: 40 mg Pneumococcal Polyvalent Vaccine (Pneumovax 23 Vaccine) 0.5 ml IM .ONCE ONE Stop: 09/13/17 10:01 Rifaximin (Xifaxan) 200 mg PO Q8 [facility] Stop: 09/13/17 16:35 Last Admin: 09/12/17 21:47 Dose: 200 mg Rosuvastatin Calcium (Crestor) 10 mg PO HS [facility] Last Admin: 09/12/17 21:50 Dose: 10 mg Sertraline HCl (Zoloft) 50 mg PO DAILY [facility] Last Admin: 09/12/17 11:16 Dose: 50 mg - Labs Labs: 09/12/17 13:00 09/12/17 08:19 PT 15.5 SECONDS (9.7-12.2) H 09/08/17 20:34 INR 1.4 09/08/17 20:34 APTT 32 SECONDS (21-34) 09/08/17 20:34 - Constitutional Appears: No Acute Distress - Head Exam Head Exam: ATRAUMATIC, NORMAL INSPECTION, NORMOCEPHALIC - Eye Exam Eye Exam: EOMI, Normal appearance, PERRL Pupil Exam: NORMAL ACCOMODATION, PERRL - Respiratory Exam Respiratory Exam: Clear to Ausculation Bilateral, NORMAL BREATHING PATTERN - Cardiovascular Exam Cardiovascular Exam: REGULAR RHYTHM, +S1, +S2. absent: Murmur - GI/Abdominal Exam GI & Abdominal Exam: Soft, Normal Bowel Sounds. absent: Tenderness Assessment and Plan (1) Dizziness Status: Acute (2) Abdominal pain Status: Acute (3) Acute diverticulitis Status: Acute
[2017-09-13] MEDS: Sodium Chloride 0.9% 1,000 ML IV SCH ×3 (02:25→21:53)
[2017-09-13] MEDS: Levothyroxine 100 MCG TAB PO SCH (05:47)
[2017-09-13] MEDS: Pantoprazole 40 mg EC Tab PO SCH (09:58)
[2017-09-13] MEDS ORDERED: Pneumococcal 23-Valent Vaccine IM ONE (10:00)
--- NOTE | 2017-09-13 10:19 | RAD ---
HISTORY: pna COMPARISON: Chest radiograph dated 09/08/2017. TECHNIQUE: Chest PA and lateral FINDINGS: LUNGS: Stable chronic prominence the bilateral interstitial markings. Stable biapical and peripheral right midlung scarring. No active pulmonary disease. PLEURA: No significant pleural effusion identified. No pneumothorax apparent. CARDIOVASCULAR: Atherosclerotic aortic calcifications. Cardiomediastinal silhouette stably enlarged. OSSEOUS STRUCTURES: Unchanged. VISUALIZED UPPER ABDOMEN: Normal. OTHER FINDINGS: Hiatal hernia. IMPRESSION: No active disease.
[2017-09-13] MEDS: Morphine 15 mg SR Tab PO SCH ×2 (11:02→21:47)
--- NOTE | 2017-09-13 12:40 | CP.PCM.PN ---
Subjective - Date & Time of Evaluation Date of Evaluation: 09/13/17 Time of Evaluation: 12:38 - Subjective Subjective: diarrhea less. Poor appetite. Difficult to obtain stool specimens. WBC elevated yesterday. + Cough Now on Rocephin, Flagyl Objective - Vital Signs/Intake and Output Vital Signs (last 24 hours): Temp Pulse Resp BP Pulse Ox 98.3 F 68 20 131/74 96 09/13/17 07:38 09/13/17 07:38 09/13/17 07:38 09/13/17 09:58 09/13/17 07:38 Intake and Output: 09/13/17 09/13/17 06:59 18:59 Intake Total 1360 Balance 1360 - Medications Medications: Current Medications Heparin Sodium (Porcine) (Heparin) 5,000 units SC Q12 [facility] Last Admin: 09/13/17 09:59 Dose: 5,000 units Sodium Chloride (Sodium Chloride 0.9%) 1,000 mls @ 55 mls/hr IV .[id number] [facility] Last Admin: 09/13/17 02:25 Dose: 55 mls/hr Ceftriaxone Sodium 1 gm/ (Sodium Chloride) 100 mls @ 100 mls/hr IVPB DAILY [facility] PRN Reason: Protocol Last Admin: 09/13/17 10:00 Dose: 100 mls/hr Levothyroxine Sodium (Synthroid) 100 mcg PO DAILY@0630 [facility] Last Admin: 09/13/17 05:47 Dose: 100 mcg Mesalamine (Delzicol Dr) 800 mg PO TID [facility] Last Admin: 09/13/17 09:59 Dose: 800 mg Metoprolol Tartrate (Lopressor) 25 mg PO Q12H [facility] Last Admin: 09/13/17 09:58 Dose: 25 mg Metronidazole (Flagyl) 500 mg PO Q8 [facility] PRN Reason: Protocol Last Admin: 09/13/17 05:47 Dose: 500 mg Morphine Sulfate (Morphine Extended Release Tab) 15 mg PO Q12H [facility] Last Admin: 09/13/17 11:02 Dose: Not Given Pantoprazole Sodium (Protonix Ec Tab) 40 mg PO DAILY [facility] Last Admin: 09/13/17 09:58 Dose: 40 mg Rifaximin (Xifaxan) 200 mg PO Q8 [facility] Stop: 09/13/17 16:35 Last Admin: 09/13/17 05:47 Dose: 200 mg Rosuvastatin Calcium (Crestor) 10 mg PO HS [facility] Last Admin: 09/12/17 21:50 Dose: 10 mg Sertraline HCl (Zoloft) 50 mg PO DAILY [facility] Last Admin: 09/13/17 09:58 Dose: 50 mg - Labs Labs: 09/12/17 13:00 09/12/17 08:19 PT 15.5 SECONDS (9.7-12.2) H 09/08/17 20:34 INR 1.4 09/08/17 20:34 APTT 32 SECONDS (21-34) 09/08/17 20:34 - Constitutional Appears: Chronically Ill - Head Exam Head Exam: NORMOCEPHALIC - Neck Exam Neck Exam: Normal Inspection - Respiratory Exam Respiratory Exam: NORMAL BREATHING PATTERN - Cardiovascular Exam Cardiovascular Exam: REGULAR RHYTHM - GI/Abdominal Exam GI & Abdominal Exam: Soft. absent: Tenderness, Organomegaly Assessment and Plan (1) Diarrhea Assessment & Plan: Some improvement with Rifaximin Stool studies and labwork pending Status: Acute (2) Crohn disease Status: Acute (3) History of colonic polyps Status: Acute (4) Diverticulosis Status: Acute
--- NOTE | 2017-09-13 23:12 | CP.PCM.PN ---
Subjective - Date & Time of Evaluation Date of Evaluation: 09/13/17 Time of Evaluation: 19:35 - Subjective Subjective: Pt is seen and examined today,c/o diarrhea Objective - Vital Signs/Intake and Output Vital Signs (last 24 hours): Temp Pulse Resp BP Pulse Ox 98.3 F 66 20 149/72 97 09/13/17 15:55 09/13/17 15:55 09/13/17 15:55 09/13/17 21:46 09/13/17 15:55 Intake and Output: 09/13/17 09/14/17 18:59 06:59 Intake Total 790 440 Balance 790 440 - Medications Medications: Current Medications Heparin Sodium (Porcine) (Heparin) 5,000 units SC Q12 [facility] Last Admin: 09/13/17 21:50 Dose: 5,000 units Sodium Chloride (Sodium Chloride 0.9%) 1,000 mls @ 55 mls/hr IV .[id number] [facility] Last Admin: 09/13/17 21:53 Dose: 55 mls/hr Ceftriaxone Sodium 1 gm/ (Sodium Chloride) 100 mls @ 100 mls/hr IVPB DAILY [facility] PRN Reason: Protocol Last Admin: 09/13/17 10:00 Dose: 100 mls/hr Levothyroxine Sodium (Synthroid) 100 mcg PO DAILY@0630 [facility] Last Admin: 09/13/17 05:47 Dose: 100 mcg Mesalamine (Delzicol Dr) 800 mg PO TID [facility] Last Admin: 09/13/17 18:17 Dose: 800 mg Metoprolol Tartrate (Lopressor) 25 mg PO Q12H [facility] Last Admin: 09/13/17 21:46 Dose: 25 mg Metronidazole (Flagyl) 500 mg PO Q8 [facility] PRN Reason: Protocol Last Admin: 09/13/17 21:48 Dose: 500 mg Morphine Sulfate (Morphine Extended Release Tab) 15 mg PO Q12H [facility] Last Admin: 09/13/17 21:47 Dose: 15 mg Pantoprazole Sodium (Protonix Ec Tab) 40 mg PO DAILY [facility] Last Admin: 09/13/17 09:58 Dose: 40 mg Rosuvastatin Calcium (Crestor) 10 mg PO HS [facility] Last Admin: 09/13/17 21:49 Dose: 10 mg Sertraline HCl (Zoloft) 50 mg PO DAILY [facility] Last Admin: 09/13/17 09:58 Dose: 50 mg - Labs Labs: 09/12/17 13:00 09/12/17 08:19 PT 15.5 SECONDS (9.7-12.2) H 09/08/17 20:34 INR 1.4 09/08/17 20:34 APTT 32 SECONDS (21-34) 09/08/17 20:34 Assessment and Plan (1) Dizziness Status: Acute (2) Abdominal pain Status: Acute (3) Acute diverticulitis Status: Acute
[2017-09-14] MEDS: Levothyroxine 100 MCG TAB PO SCH (05:58)
[2017-09-14 07:29] LABS: BASO # 0.2 K/uL (0.0-0.2); BASO % 1.1 % (0.0-2.0); EOS # 0.2 K/uL (0.0-0.7); EOS % 1.2 % (0.0-4.0); HEMOGLOBIN 8.9 g/dL (11.0-16.0); LYMPH # 0.9 K/uL (1.0-4.3); LYMPH % 5.9 % (20.0-40.0); MEAN CORPUSCULAR HEMOGLOBIN 26.4 pg (27.0-31.0); MEAN CORPUSCULAR HGB CONC 32.7 g/dL (33.0-37.0); MEAN PLATELET VOLUME 10.4 fL (7.2-11.7); MONO % 6.9 % (0.0-10.0); NEUT # 12.3 K/uL (1.8-7.0); NEUT % 84.9 % (50.0-75.0); NRBC % 0.1 % (0.0-2.0); PLATELET COUNT 190 K/uL (130-400); RBC 3.38 Mil/uL (3.80-5.20); RED CELL DISTRIBUTION WIDTH 20.9 % (11.5-14.5); WHITE BLOOD COUNT 14.5 K/uL (4.8-10.8)
[2017-09-14 07:41] LABS: BLOOD UREA NITROGEN 11 mg/dL (7-17); CALCIUM 7.2 mg/dl (8.6-10.4); GFR AFRICAN-AMERICAN > 60; GFR NON-AFRICAN AMERICAN > 60
[2017-09-14 07:48] LABS: MEAN CELL VOLUME 80.8 fL (81.0-99.0)
[2017-09-14] MEDS: Pantoprazole 40 mg EC Tab PO SCH (10:10)
[2017-09-14] MEDS: Morphine 15 mg SR Tab PO SCH ×2 (10:10→21:29)
[2017-09-14 10:43] LABS: ANISOCYTOSIS MODERATE; EOSINOPHIL 1 % (0-4); HYPOCHROMIC SLIGHT; LYMPHOCYTE 4 % (20-40); MONOCYTE 5 % (0-10); NEUTROPHIL 90 % (50-75); PLATELET ESTIMATE NORMAL (NORMAL); TOTAL CELLS COUNTED 100
[2017-09-14 10:44] LABS: OVALOCYTES SLIGHT; POIKILOCYTOSIS SLIGHT
[2017-09-14 10:45] LABS: BURR CELLS SLIGHT; LARGE PLATELETS PRESENT
[2017-09-14] MEDS: Sodium Chloride 0.9% 1,000 ML IV SCH (17:44)
--- NOTE | 2017-09-14 23:26 | CP.PCM.PN ---
Subjective - Date & Time of Evaluation Date of Evaluation: 09/14/17 Time of Evaluation: 19:40 - Subjective Subjective: PATIENT SEEN AND EVALUATED TODAY pt has nausea, no vomitting, i discussed the case with pt daughter he is for electrolyte supplementation pt continues to have diarrhea pending stool for C.diff Objective - Vital Signs/Intake and Output Vital Signs (last 24 hours): Temp Pulse Resp BP Pulse Ox 98.5 F 70 20 147/73 98 09/14/17 15:00 09/14/17 15:00 09/14/17 15:00 09/14/17 21:34 09/14/17 15:00 Intake and Output: 09/14/17 09/15/17 18:59 06:59 Intake Total 440 Balance 440 - Medications Medications: Current Medications Heparin Sodium (Porcine) (Heparin) 5,000 units SC Q12 [facility] Last Admin: 09/14/17 21:32 Dose: 5,000 units Sodium Chloride (Sodium Chloride 0.9%) 1,000 mls @ 55 mls/hr IV .[id number] [facility] Last Admin: 09/14/17 17:44 Dose: 55 mls/hr Ceftriaxone Sodium 1 gm/ (Sodium Chloride) 100 mls @ 100 mls/hr IVPB DAILY [facility] PRN Reason: Protocol Last Admin: 09/14/17 10:17 Dose: 100 mls/hr Levothyroxine Sodium (Synthroid) 100 mcg PO DAILY@0630 [facility] Last Admin: 09/14/17 05:58 Dose: 100 mcg Mesalamine (Delzicol Dr) 800 mg PO TID [facility] Last Admin: 09/14/17 17:45 Dose: 800 mg Metoprolol Tartrate (Lopressor) 25 mg PO Q12H [facility] Last Admin: 09/14/17 21:34 Dose: 25 mg Metronidazole (Flagyl) 500 mg PO Q8 [facility] PRN Reason: Protocol Last Admin: 09/14/17 21:31 Dose: 500 mg Morphine Sulfate (Morphine Extended Release Tab) 15 mg PO Q12H [facility] Last Admin: 09/14/17 21:29 Dose: 15 mg Pantoprazole Sodium (Protonix Ec Tab) 40 mg PO DAILY [facility] Last Admin: 09/14/17 10:10 Dose: 40 mg Rosuvastatin Calcium (Crestor) 10 mg PO HS [facility] Last Admin: 09/14/17 21:32 Dose: 10 mg Sertraline HCl (Zoloft) 50 mg PO DAILY [facility] Last Admin: 09/14/17 10:10 Dose: 50 mg - Labs Labs: 09/14/17 07:11 09/14/17 07:11 PT 15.5 SECONDS (9.7-12.2) H 09/08/17 20:34 INR 1.4 09/08/17 20:34 APTT 32 SECONDS (21-34) 09/08/17 20:34 - Constitutional Appears: No Acute Distress - Head Exam Head Exam: ATRAUMATIC, NORMAL INSPECTION, NORMOCEPHALIC - Eye Exam Eye Exam: EOMI, Normal appearance, PERRL Pupil Exam: NORMAL ACCOMODATION, PERRL - Respiratory Exam Respiratory Exam: Clear to Ausculation Bilateral, NORMAL BREATHING PATTERN - Cardiovascular Exam Cardiovascular Exam: REGULAR RHYTHM, +S1, +S2. absent: Murmur - GI/Abdominal Exam GI & Abdominal Exam: Soft, Normal Bowel Sounds. absent: Tenderness Assessment and Plan (1) Dizziness Status: Acute (2) Abdominal pain Status: Acute (3) Acute diverticulitis Status: Acute
[2017-09-15] MEDS: Levothyroxine 100 MCG TAB PO SCH (06:41)
[2017-09-15 08:45] LABS: BASO # 0.1 K/uL (0.0-0.2); BASO % 0.9 % (0.0-2.0); EOS # 0.3 K/uL (0.0-0.7); EOS % 1.8 % (0.0-4.0); HEMOGLOBIN 9.5 g/dL (11.0-16.0); LYMPH # 1.2 K/uL (1.0-4.3); LYMPH % 7.3 % (20.0-40.0); MEAN CORPUSCULAR HEMOGLOBIN 26.4 pg (27.0-31.0); MEAN CORPUSCULAR HGB CONC 32.5 g/dL (33.0-37.0); MEAN PLATELET VOLUME 10.5 fL (7.2-11.7); MONO # 1.1 K/uL (0.0-0.8); MONO % 6.7 % (0.0-10.0); NEUT % 83.3 % (50.0-75.0); PLATELET COUNT 260 K/uL (130-400); RBC 3.61 Mil/uL (3.80-5.20); RED CELL DISTRIBUTION WIDTH 21.3 % (11.5-14.5); WHITE BLOOD COUNT 16.8 K/uL (4.8-10.8)
[2017-09-15 08:57] LABS: BLOOD UREA NITROGEN 8 mg/dL (7-17); CALCIUM 7.3 mg/dl (8.6-10.4); GFR AFRICAN-AMERICAN > 60; GFR NON-AFRICAN AMERICAN > 60
[2017-09-15 10:27] LABS: ANISOCYTOSIS MODERATE; BANDS 2 % (0-2); BURR CELLS MODERATE; EOSINOPHIL 1 % (0-4); HYPOCHROMIC SLIGHT; LYMPHOCYTE 8 % (20-40); MONOCYTE 2 % (0-10); NEUTROPHIL 87 % (50-75); PLATELET ESTIMATE NORMAL (NORMAL); POIKILOCYTOSIS SLIGHT; TOTAL CELLS COUNTED 100
[2017-09-15 10:28] LABS: GIANT PLATELETS PRESENT; LARGE PLATELETS PRESENT; OVALOCYTES SLIGHT
[2017-09-15 10:29] LABS: TARGET CELLS SLIGHT
[2017-09-15] MEDS: Pantoprazole 40 mg EC Tab PO SCH (10:45)
[2017-09-15] MEDS: Morphine 15 mg SR Tab PO SCH ×2 (10:47→21:48)
[2017-09-15] MEDS: Sodium Chloride 0.9% 1,000 ML IV SCH (11:01)
--- NOTE | 2017-09-15 15:24 | CP.PCM.PN ---
Subjective - Date & Time of Evaluation Date of Evaluation: 09/15/17 Time of Evaluation: 15:20 - Subjective Subjective: F/U anemia Son present. Reports diarrhea is less. Appetite is nl. Denies fever, chills, AVELAR, cough, RB, melena, CP, SOB, AVELAR Objective - Vital Signs/Intake and Output Vital Signs (last 24 hours): Temp Pulse Resp BP Pulse Ox 97.6 F 79 20 149/69 99 09/15/17 08:00 09/15/17 13:24 09/15/17 08:00 09/15/17 13:24 09/15/17 13:24 Intake and Output: 09/15/17 09/15/17 06:59 18:59 Intake Total 1120 845 Balance 1120 845 - Medications Medications: Current Medications Heparin Sodium (Porcine) (Heparin) 5,000 units SC Q12 [facility] Last Admin: 09/15/17 10:45 Dose: 5,000 units Sodium Chloride (Sodium Chloride 0.9%) 1,000 mls @ 55 mls/hr IV .[id number] [facility] Last Admin: 09/15/17 11:01 Dose: 55 mls/hr Ceftriaxone Sodium 1 gm/ (Sodium Chloride) 100 mls @ 100 mls/hr IVPB DAILY [facility] PRN Reason: Protocol Last Admin: 09/15/17 10:46 Dose: 100 mls/hr Levothyroxine Sodium (Synthroid) 100 mcg PO DAILY@0630 [facility] Last Admin: 09/15/17 06:41 Dose: 100 mcg Mesalamine (Delzicol Dr) 800 mg PO TID [facility] Last Admin: 09/15/17 13:27 Dose: 800 mg Metoprolol Tartrate (Lopressor) 25 mg PO Q12H [facility] Last Admin: 09/15/17 10:47 Dose: 25 mg Metronidazole (Flagyl) 500 mg PO Q8 [facility] PRN Reason: Protocol Last Admin: 09/15/17 13:28 Dose: 500 mg Morphine Sulfate (Morphine Extended Release Tab) 15 mg PO Q12H [facility] Last Admin: 09/15/17 10:47 Dose: 15 mg Ondansetron HCl (Zofran Inj) 4 mg IVP ACHS [facility] Last Admin: 09/15/17 11:05 Dose: 4 mg Pantoprazole Sodium (Protonix Ec Tab) 40 mg PO DAILY [facility] Last Admin: 09/15/17 10:45 Dose: 40 mg Rosuvastatin Calcium (Crestor) 10 mg PO HS [facility] Last Admin: 09/14/17 21:32 Dose: 10 mg Sertraline HCl (Zoloft) 50 mg PO DAILY [facility] Last Admin: 09/15/17 10:45 Dose: 50 mg - Labs Labs: 09/15/17 08:35 09/15/17 08:35 PT 15.5 SECONDS (9.7-12.2) H 09/08/17 20:34 INR 1.4 09/08/17 20:34 APTT 32 SECONDS (21-34) 09/08/17 20:34 - Constitutional Appears: Non-toxic - Respiratory Exam Respiratory Exam: Clear to Ausculation Bilateral - Cardiovascular Exam Cardiovascular Exam: RRR - GI/Abdominal Exam GI & Abdominal Exam: Soft, Normal Bowel Sounds. absent: Guarding, Tenderness - Extremities Exam Extremities Exam: absent: Tenderness - Neurological Exam Neurological Exam: Alert, Oriented x3 Assessment and Plan (1) Diarrhea Assessment & Plan: Chronic. Improving Dr Irving was ordering Xifaxan Status: Acute (2) Diverticulosis Status: Acute (3) History of colonic polyps Status: Acute (4) COPD (chronic obstructive pulmonary disease) Status: Acute (5) Crohn disease Assessment & Plan: h/o crohns in past/ Status: Acute (6) Colon polyp Assessment & Plan: Partially removed polyp in past. Patient has been refusing repeat colonoscopy. Discussed risk of cancer. Status: Acute
--- NOTE | 2017-09-15 23:47 | CP.PCM.PN ---
Subjective - Date & Time of Evaluation Date of Evaluation: 09/15/17 Time of Evaluation: 18:00 Objective - Vital Signs/Intake and Output Vital Signs (last 24 hours): Temp Pulse Resp BP Pulse Ox 97.9 F 74 20 110/66 94 L 09/15/17 15:05 09/15/17 15:05 09/15/17 15:05 09/15/17 21:48 09/15/17 15:05 Intake and Output: 09/15/17 09/16/17 18:59 06:59 Intake Total 845 Balance 845 - Medications Medications: Current Medications Heparin Sodium (Porcine) (Heparin) 5,000 units SC Q12 [facility] Last Admin: 09/15/17 21:21 Dose: 5,000 units Ceftriaxone Sodium 1 gm/ (Sodium Chloride) 100 mls @ 100 mls/hr IVPB DAILY [facility] PRN Reason: Protocol Last Admin: 09/15/17 10:46 Dose: 100 mls/hr Levothyroxine Sodium (Synthroid) 100 mcg PO DAILY@0630 [facility] Last Admin: 09/15/17 06:41 Dose: 100 mcg Mesalamine (Delzicol Dr) 800 mg PO TID [facility] Last Admin: 09/15/17 17:35 Dose: 800 mg Metoprolol Tartrate (Lopressor) 25 mg PO Q12H [facility] Last Admin: 09/15/17 21:48 Dose: 25 mg Metronidazole (Flagyl) 500 mg PO Q8 [facility] PRN Reason: Protocol Last Admin: 09/15/17 21:20 Dose: 500 mg Morphine Sulfate (Morphine Extended Release Tab) 15 mg PO Q12H [facility] Last Admin: 09/15/17 21:48 Dose: 15 mg Ondansetron HCl (Zofran Inj) 4 mg IVP ACHS [facility] Last Admin: 09/15/17 21:22 Dose: 4 mg Pantoprazole Sodium (Protonix Ec Tab) 40 mg PO DAILY [facility] Last Admin: 09/15/17 10:45 Dose: 40 mg Rifaximin (Xifaxan) 200 mg PO Q8 [facility] Stop: 09/17/17 15:34 Last Admin: 09/15/17 21:24 Dose: 200 mg Rosuvastatin Calcium (Crestor) 10 mg PO HS [facility] Last Admin: 09/15/17 21:19 Dose: 10 mg Sertraline HCl (Zoloft) 50 mg PO DAILY [facility] Last Admin: 09/15/17 10:45 Dose: 50 mg - Labs Labs: 09/15/17 08:35 09/15/17 08:35 PT 15.5 SECONDS (9.7-12.2) H 09/08/17 20:34 INR 1.4 09/08/17 20:34 APTT 32 SECONDS (21-34) 09/08/17 20:34 Assessment and Plan (1) Dizziness Status: Acute (2) Abdominal pain Status: Acute (3) Acute diverticulitis Status: Acute
[2017-09-16] MEDS: Levothyroxine 100 MCG TAB PO SCH (05:39)
[2017-09-16] MEDS: Pantoprazole 40 mg EC Tab PO SCH (09:44)
[2017-09-16] MEDS: Morphine 15 mg SR Tab PO SCH ×2 (09:49→22:44)
[2017-09-16] MEDS ORDERED: Potassium Chloride 20 mEq ER Tab PO ONE (10:15)
--- NOTE | 2017-09-16 10:29 | CP.PCM.PN ---
Subjective - Date & Time of Evaluation Date of Evaluation: 09/16/17 Time of Evaluation: 10:25 - Subjective Subjective: Patient reports having one loose stool this morning. She has right lower quadrant discomfort. She also complains of nausea, but has not vomited in the last 24 hours. She is able to eat only small portions of food. Objective - Vital Signs/Intake and Output Vital Signs (last 24 hours): Temp Pulse Resp BP Pulse Ox 97.3 F L 66 20 152/64 H 99 09/16/17 00:00 09/16/17 00:00 09/16/17 00:00 09/16/17 09:43 09/16/17 00:00 Intake and Output: 09/16/17 09/16/17 06:59 18:59 Intake Total 480 Balance 480 - Medications Medications: Current Medications Heparin Sodium (Porcine) (Heparin) 5,000 units SC Q12 [facility] Last Admin: 09/16/17 09:44 Dose: 5,000 units Ceftriaxone Sodium 1 gm/ (Sodium Chloride) 100 mls @ 100 mls/hr IVPB DAILY [facility] PRN Reason: Protocol Last Admin: 09/16/17 09:50 Dose: 100 mls/hr Levothyroxine Sodium (Synthroid) 100 mcg PO DAILY@0630 [facility] Last Admin: 09/16/17 05:39 Dose: 100 mcg Mesalamine (Delzicol Dr) 800 mg PO TID [facility] Last Admin: 09/16/17 09:46 Dose: 800 mg Metoprolol Tartrate (Lopressor) 25 mg PO Q12H [facility] Last Admin: 09/16/17 09:43 Dose: 25 mg Metronidazole (Flagyl) 500 mg PO Q8 [facility] PRN Reason: Protocol Last Admin: 09/16/17 05:39 Dose: 500 mg Morphine Sulfate (Morphine Extended Release Tab) 15 mg PO Q12H [facility] Last Admin: 09/16/17 09:49 Dose: 15 mg Ondansetron HCl (Zofran Inj) 4 mg IVP ACHS [facility] Last Admin: 09/16/17 08:20 Dose: 4 mg Pantoprazole Sodium (Protonix Ec Tab) 40 mg PO DAILY [facility] Last Admin: 09/16/17 09:44 Dose: 40 mg Rifaximin (Xifaxan) 200 mg PO Q8 [facility] Stop: 09/17/17 15:34 Last Admin: 09/16/17 05:48 Dose: 200 mg Rosuvastatin Calcium (Crestor) 10 mg PO HS [facility] Last Admin: 09/15/17 21:19 Dose: 10 mg Sertraline HCl (Zoloft) 50 mg PO DAILY [facility] Last Admin: 09/16/17 09:44 Dose: 50 mg - Labs Labs: 09/15/17 08:35 09/15/17 08:35 PT 15.5 SECONDS (9.7-12.2) H 09/08/17 20:34 INR 1.4 09/08/17 20:34 APTT 32 SECONDS (21-34) 09/08/17 20:34 - Constitutional Appears: No Acute Distress - Head Exam Head Exam: ATRAUMATIC, NORMOCEPHALIC - Eye Exam Eye Exam: EOMI, Normal appearance - Neck Exam Neck Exam: absent: Lymphadenopathy, Thyromegaly - Respiratory Exam Respiratory Exam: NORMAL BREATHING PATTERN. absent: Rales, Rhonchi, Wheezes - Cardiovascular Exam Cardiovascular Exam: REGULAR RHYTHM, +S1, +S2. absent: Gallop, Rubs, Murmur - GI/Abdominal Exam GI & Abdominal Exam: Soft, Normal Bowel Sounds. absent: Tenderness, Mass, Organomegaly - Rectal Exam Rectal Exam: Deferred - Extremities Exam Extremities Exam: absent: Calf Tenderness, Pedal Edema Assessment and Plan (1) Diarrhea Assessment & Plan: Patient continues to complain of diarrhea, nausea, poor appetite. Will check C difficile toxin B PCR, fecal calprotectin. Status: Acute
[2017-09-16 14:52] LABS: SQUAMOUS EPITHIAL 4 /hpf (0-5); URINE BACTERIA RARE (<OCC); URINE BILIRUBIN NEGATIVE (NEGATIVE); URINE BLOOD 1+ (NEGATIVE); URINE CLARITY Hazy (Clear); URINE COLOR Yellow (YELLOW); URINE GLUCOSE (UA) NORMAL (Normal); URINE LEUKOCYTE ESTERASE 2+ Leu/uL (Negative); URINE PROTEIN NEGATIVE (NEGATIVE); URINE UROBILINOGEN NORMAL mg/dL (0.2-1.0)
[2017-09-16] MEDS ORDERED: oxyCODONE 5 mg Immediate Release Tab PO ONE (18:46)
[2017-09-17] MEDS: Levothyroxine 100 MCG TAB PO SCH (05:41)
[2017-09-17] MEDS: Pantoprazole 40 mg EC Tab PO SCH (09:41)
[2017-09-17] MEDS: Morphine 15 mg SR Tab PO SCH ×2 (09:44→22:28)
--- NOTE | 2017-09-17 14:20 | CP.PCM.PN ---
Subjective - Date & Time of Evaluation Date of Evaluation: 09/16/17 Time of Evaluation: 15:00 Objective - Vital Signs/Intake and Output Vital Signs (last 24 hours): Temp Pulse Resp BP Pulse Ox 98.2 F 80 20 154/74 H 96 09/17/17 00:00 09/17/17 00:00 09/17/17 00:00 09/17/17 09:44 09/17/17 00:00 Intake and Output: 09/17/17 09/17/17 06:59 18:59 Intake Total 450 Balance 450 - Medications Medications: Current Medications Heparin Sodium (Porcine) (Heparin) 5,000 units SC Q12 [facility] Last Admin: 09/17/17 09:42 Dose: 5,000 units Ceftriaxone Sodium 1 gm/ (Sodium Chloride) 100 mls @ 100 mls/hr IVPB DAILY [facility] PRN Reason: Protocol Last Admin: 09/17/17 09:41 Dose: 100 mls/hr Levothyroxine Sodium (Synthroid) 100 mcg PO DAILY@0630 [facility] Last Admin: 09/17/17 05:41 Dose: 100 mcg Mesalamine (Delzicol Dr) 800 mg PO TID [facility] Last Admin: 09/17/17 13:19 Dose: 800 mg Metoprolol Tartrate (Lopressor) 25 mg PO Q12H [facility] Last Admin: 09/17/17 09:44 Dose: 25 mg Metronidazole (Flagyl) 500 mg PO Q8 [facility] PRN Reason: Protocol Last Admin: 09/17/17 13:20 Dose: 500 mg Morphine Sulfate (Morphine Extended Release Tab) 15 mg PO Q12H [facility] Last Admin: 09/17/17 09:44 Dose: 15 mg Ondansetron HCl (Zofran Inj) 4 mg IVP ACHS [facility] Last Admin: 09/17/17 11:20 Dose: 4 mg Pantoprazole Sodium (Protonix Ec Tab) 40 mg PO DAILY [facility] Last Admin: 09/17/17 09:41 Dose: 40 mg Rifaximin (Xifaxan) 200 mg PO Q8 [facility] Stop: 09/17/17 15:34 Last Admin: 09/17/17 13:19 Dose: 200 mg Rosuvastatin Calcium (Crestor) 10 mg PO HS [facility] Last Admin: 09/16/17 21:44 Dose: 10 mg Sertraline HCl (Zoloft) 50 mg PO DAILY [facility] Last Admin: 09/17/17 09:41 Dose: 50 mg - Labs Labs: 09/15/17 08:35 09/15/17 08:35 PT 15.5 SECONDS (9.7-12.2) H 09/08/17 20:34 INR 1.4 09/08/17 20:34 APTT 32 SECONDS (21-34) 09/08/17 20:34 Assessment and Plan (1) Dizziness Status: Acute (2) Abdominal pain Status: Acute (3) Acute diverticulitis Status: Acute
--- NOTE | 2017-09-17 14:22 | CP.PCM.PN ---
Subjective - Date & Time of Evaluation Date of Evaluation: 09/17/17 Time of Evaluation: 18:25 Objective - Vital Signs/Intake and Output Vital Signs (last 24 hours): Temp Pulse Resp BP Pulse Ox 98.2 F 80 20 154/74 H 96 09/17/17 00:00 09/17/17 00:00 09/17/17 00:00 09/17/17 09:44 09/17/17 00:00 Intake and Output: 09/17/17 09/17/17 06:59 18:59 Intake Total 450 Balance 450 - Medications Medications: Current Medications Heparin Sodium (Porcine) (Heparin) 5,000 units SC Q12 [facility] Last Admin: 09/17/17 09:42 Dose: 5,000 units Ceftriaxone Sodium 1 gm/ (Sodium Chloride) 100 mls @ 100 mls/hr IVPB DAILY [facility] PRN Reason: Protocol Last Admin: 09/17/17 09:41 Dose: 100 mls/hr Levothyroxine Sodium (Synthroid) 100 mcg PO DAILY@0630 [facility] Last Admin: 09/17/17 05:41 Dose: 100 mcg Mesalamine (Delzicol Dr) 800 mg PO TID [facility] Last Admin: 09/17/17 13:19 Dose: 800 mg Metoprolol Tartrate (Lopressor) 25 mg PO Q12H [facility] Last Admin: 09/17/17 09:44 Dose: 25 mg Metronidazole (Flagyl) 500 mg PO Q8 [facility] PRN Reason: Protocol Last Admin: 09/17/17 13:20 Dose: 500 mg Morphine Sulfate (Morphine Extended Release Tab) 15 mg PO Q12H [facility] Last Admin: 09/17/17 09:44 Dose: 15 mg Ondansetron HCl (Zofran Inj) 4 mg IVP ACHS [facility] Last Admin: 09/17/17 11:20 Dose: 4 mg Pantoprazole Sodium (Protonix Ec Tab) 40 mg PO DAILY [facility] Last Admin: 09/17/17 09:41 Dose: 40 mg Rifaximin (Xifaxan) 200 mg PO Q8 [facility] Stop: 09/17/17 15:34 Last Admin: 09/17/17 13:19 Dose: 200 mg Rosuvastatin Calcium (Crestor) 10 mg PO HS [facility] Last Admin: 09/16/17 21:44 Dose: 10 mg Sertraline HCl (Zoloft) 50 mg PO DAILY [facility] Last Admin: 09/17/17 09:41 Dose: 50 mg - Labs Labs: 09/15/17 08:35 09/15/17 08:35 PT 15.5 SECONDS (9.7-12.2) H 09/08/17 20:34 INR 1.4 09/08/17 20:34 APTT 32 SECONDS (21-34) 09/08/17 20:34 Assessment and Plan (1) Dizziness Status: Acute (2) Abdominal pain Status: Acute (3) Acute diverticulitis Status: Acute
[2017-09-17] MEDS ORDERED: oxyCODONE 5 mg Immediate Release Tab PO PRN (16:15)
[2017-09-18 01:22] VITALS: TEMP 98.1
[2017-09-18] MEDS: Levothyroxine 100 MCG TAB PO SCH (05:51)
[2017-09-18 06:47] LABS: MEAN CELL VOLUME 79.8 fL (81.0-99.0); MEAN CORPUSCULAR HEMOGLOBIN 26.2 pg (27.0-31.0); MEAN CORPUSCULAR HGB CONC 32.8 g/dL (33.0-37.0); MEAN PLATELET VOLUME 9.9 fL (7.2-11.7); RBC 3.07 Mil/uL (3.80-5.20); RED CELL DISTRIBUTION WIDTH 21.6 % (11.5-14.5); WHITE BLOOD COUNT 10.8 K/uL (4.8-10.8)
[2017-09-18 07:47] LABS: BLOOD UREA NITROGEN 4 mg/dL (7-17); CALCIUM 6.8 mg/dl (8.6-10.4); GFR AFRICAN-AMERICAN > 60; GFR NON-AFRICAN AMERICAN > 60
[2017-09-18] MEDS: Pantoprazole 40 mg EC Tab PO SCH (10:00)
[2017-09-18] MEDS: Morphine 15 mg SR Tab PO SCH (10:06)
[2017-09-18] MEDS: Potassium Chloride 20 mEq/15 ml LIQ UD PO SCH ×2 (10:12→14:00)
[2017-09-18] MEDS ORDERED: Fluconazole IV 100mg/50 ml NS 50 ML IVPB SCH (14:00)
[2017-09-18 14:25] LABS: ANCA SCREEN NEGATIVE (NEGATIVE)
[2017-09-18 16:19] VITALS: BP 157/82; PULSE 66; O2SAT 100
--- NOTE | 2017-09-18 17:59 | CP.PCM.PN ---
Subjective - Date & Time of Evaluation Date of Evaluation: 09/18/17 Time of Evaluation: 11:00 - Subjective Subjective: Alert, awake, ambulates with assistance. No vomiting or abdominal pain today. Objective - Vital Signs/Intake and Output Vital Signs (last 24 hours): Temp Pulse Resp BP Pulse Ox 98.1 F 66 20 157/82 H 100 09/18/17 16:00 09/18/17 16:00 09/18/17 16:00 09/18/17 16:00 09/18/17 16:00 Intake and Output: 09/18/17 09/18/17 06:59 18:59 Intake Total 700 240 Balance 700 240 - Labs Labs: 09/18/17 06:39 09/18/17 06:39 PT 15.5 SECONDS (9.7-12.2) H 09/08/17 20:34 INR 1.4 09/08/17 20:34 APTT 32 SECONDS (21-34) 09/08/17 20:34 Assessment and Plan - Assessment and Plan (Free Text) Assessment: 87 year old female admitted with diarrhea, weakness,hypokalemia, seen and examined. More pleasant and is able to eat small amounts of food. May discharge home as per DR Krishnamurthy on po antibiotics. Discussed with DR Chong, plan to discharge home today on flagyl, xifaxan and diflucan. Advised to follow up with GI and PMD in 1 week. Grand daughter verbalized understanding of the follow up care.
--- NOTE | 2017-09-18 23:14 | CP.PCM.DIS ---
Provider - Provider Date of Admission: 09/10/17 10:34 Attending physician: Brodie Chong MD Time Spent in preparation of Discharge (in minutes): 52 Diagnosis - Discharge Diagnosis (1) Dizziness Status: Acute (2) Abdominal pain Status: Acute (3) Acute diverticulitis Status: Acute Hospital Course - Lab Results Lab Results: Micro Results 09/16/17 14:14 Urine Urine Culture - Final Yeast Species Most Recent Lab Values WBC 10.8 K/uL (4.8-10.8) 09/18/17 06:39 RBC 3.07 Mil/uL (3.80-5.20) L 09/18/17 06:39 Hgb 8.0 g/dL (11.0-16.0) L 09/18/17 06:39 Hct 24.5 % (34.0-47.0) L 09/18/17 06:39 MCV 79.8 fL (81.0-99.0) L 09/18/17 06:39 MCH 26.2 pg (27.0-31.0) L 09/18/17 06:39 MCHC 32.8 g/dL (33.0-37.0) L 09/18/17 06:39 RDW 21.6 % (11.5-14.5) H 09/18/17 06:39 Plt Count 301 K/uL (130-400) 09/18/17 06:39 MPV 9.9 fL (7.2-11.7) 09/18/17 06:39 Neut % (Auto) 83.3 % (50.0-75.0) H 09/15/17 08:35 Lymph % (Auto) 7.3 % (20.0-40.0) L 09/15/17 08:35 [place] % (Auto) 6.7 % (0.0-10.0) 09/15/17 08:35 Eos % (Auto) 1.8 % (0.0-4.0) 09/15/17 08:35 Baso % (Auto) 0.9 % (0.0-2.0) 09/15/17 08:35 Neut # (Auto) 14.0 K/uL (1.8-7.0) H 09/15/17 08:35 Lymph # (Auto) 1.2 K/uL (1.0-4.3) 09/15/17 08:35 [place] # (Auto) 1.1 K/uL (0.0-0.8) H 09/15/17 08:35 Eos # (Auto) 0.3 K/uL (0.0-0.7) 09/15/17 08:35 Baso # (Auto) 0.1 K/uL (0.0-0.2) 09/15/17 08:35 Neutrophils % (Manual) 87 % (50-75) H 09/15/17 08:35 Band Neutrophils % 2 % (0-2) 09/15/17 08:35 Lymphocytes % (Manual) 8 % (20-40) L 09/15/17 08:35 Monocytes % (Manual) 2 % (0-10) 09/15/17 08:35 Eosinophils % (Manual) 1 % (0-4) 09/15/17 08:35 Basophils % (Manual) 1 % (0-2) 09/12/17 13:00 Nucleated RBC % 1 % (0-0) H 09/12/17 13:00 Toxic Granulation Present 09/10/17 07:04 Platelet Estimate Normal (NORMAL) 09/15/17 08:35 Large Platelets Present 09/15/17 08:35 Giant Platelets Present 09/15/17 08:35 Polychromasia Slight 09/10/17 07:04 Hypochromasia (manual) Slight 09/15/17 08:35 Poikilocytosis (manual Slight 09/15/17 08:35 Basophilic Stippling Slight 09/14/17 07:11 Anisocytosis (manual) Moderate 09/15/17 08:35 Target Cells Slight 09/15/17 08:35 Tear Drop Cells Slight 09/12/17 13:00 Ovalocytes Slight 09/15/17 08:35 Sonya Cells Moderate 09/15/17 08:35 Schistocytes Slight 09/10/17 07:04 ESR 5 mm/hr (0-20) 09/13/17 08:08 PT 15.5 SECONDS (9.7-12.2) H 09/08/17 20:34 INR 1.4 09/08/17 20:34 APTT 32 SECONDS (21-34) 09/08/17 20:34 Sodium 138 mmol/L (132-148) 09/18/17 06:39 Potassium 3.0 mmol/L (3.6-5.2) L 09/18/17 06:39 Chloride 107 mmol/L (98-107) 09/18/17 06:39 Carbon Dioxide 22 mmol/L (22-30) 09/18/17 06:39 Anion Gap 12 (10-20) 09/18/17 06:39 BUN 4 mg/dL (7-17) L 09/18/17 06:39 Creatinine 0.8 mg/dL (0.7-1.2) 09/18/17 06:39 Est GFR ( Amer) > 60 09/18/17 06:39 Est GFR (Non-Af Amer) > 60 09/18/17 06:39 POC Glucose (mg/dL) 141 mg/dL (65-110) H 09/08/17 20:04 Random Glucose 80 mg/dL (65-105) 09/18/17 06:39 Calcium 6.8 mg/dl (8.6-10.4) L 09/18/17 06:39 Total Bilirubin 0.6 mg/dL (0.2-1.3) 09/10/17 07:04 AST 24 U/L (14-36) 09/10/17 07:04 ALT 24 U/L (9-52) 09/10/17 07:04 Alkaline Phosphatase 74 U/L (38-126) 09/10/17 07:04 Total Creatine Kinase 75 U/L (30-135) 09/08/17 20:34 Troponin I 0.0350 ng/mL (0.00-0.120) 09/08/17 20:34 C-React Prot High Sens > 15.00 mg/L (1.00-3.00) H 09/12/17 08:19 Total Protein 4.2 g/dL (6.3-8.3) L 09/10/17 07:04 Albumin 2.1 g/dL (3.5-5.0) L D 09/10/17 07:04 Globulin 2.1 gm/dL (2.2-3.9) L 09/10/17 07:04 Albumin/Globulin Ratio 1.0 (1.0-2.1) 09/10/17 07:04 Vitamin B12 564 pg/mL (239-931) 09/12/17 08:19 Folate 5.7 ng/mL 09/12/17 08:19 Urine Color Yellow (YELLOW) 09/16/17 14:37 Urine Clarity Hazy (Clear) 09/16/17 14:37 Urine pH 5.0 (5.0-8.0) 09/16/17 14:37 Ur Specific Singer 1.009 (1.003-1.030) 09/16/17 14:37 Urine Protein Negative mg/dL (NEGATIVE) 09/16/17 14:37 Urine Glucose (UA) Normal mg/dL (Normal) 09/16/17 14:37 Urine Ketones Negative mg/dL (NEGATIVE) 09/16/17 14:37 Urine Blood 1+ (NEGATIVE) H 09/16/17 14:37 Urine Nitrate Negative (NEGATIVE) 09/16/17 14:37 Urine Bilirubin Negative (NEGATIVE) 09/16/17 14:37 Urine Urobilinogen Normal mg/dL (0.2-1.0) 09/16/17 14:37 Ur Leukocyte Esterase 2+ Cecil/uL (Negative) H 09/16/17 14:37 Urine WBC (Auto) 39 /hpf (0-5) H 09/16/17 14:37 Urine RBC (Auto) 4 /hpf (0-3) H 09/16/17 14:37 Ur Squamous Epith Cells 4 /hpf (0-5) 09/16/17 14:37 Urine Bacteria Rare (<OCC) 09/16/17 14:37 Hyaline Casts 3-5 /lpf (0-2) H 09/16/17 14:37 Urine Yeast (Budding) Rare /hpf (NEGATIVE) H 09/16/17 14:37 Stool Occult Blood Negative (NEGATIVE) 09/18/17 21:09 ANCA Screen Negative (NEGATIVE) 09/13/17 08:08 c-ANCA Titer TNP 09/13/17 08:08 Proteinase 3 (PR3) <1.0 AI (<1.0) 09/13/17 08:08 p-ANCA Titer TNP 09/13/17 08:08 Atypical p-ANCA Titer TNP 09/13/17 08:08 Myeloperoxidase Ab <1.0 AI (<1.0) 09/13/17 08:08 S.cerevisiae IgG Ab <20.0 U 09/13/17 08:08 S.cerevisiae IgA Ab 3.8 U (<=20.0) 09/13/17 08:08 - Hospital Course Hospital Course: Pt seen & evaluated, afebrile, wbc is down, her B.P medicine is reduced, diarrhea, nausea, vomitting improved Discharge Exam - Head Exam Head Exam: ATRAUMATIC, NORMAL INSPECTION, NORMOCEPHALIC - Eye Exam Eye Exam: EOMI, Normal appearance, PERRL Pupil Exam: NORMAL ACCOMODATION, PERRL - ENT Exam ENT Exam: Mucous Membranes Moist - Respiratory Exam Respiratory Exam: Decreased Breath Sounds, Rales, Rhonchi - Cardiovascular Exam Cardiovascular Exam: REGULAR RHYTHM, +S1, +S2 - GI/Abdominal Exam GI & Abdominal Exam: Normal Bowel Sounds - Rectal Exam Rectal Exam: Deferred Discharge Plan - Discharge Medications Prescriptions: Fluconazole [Diflucan] 100 mg PO DAILY #5 tab metroNIDAZOLE [Flagyl] 500 mg PO Q8 #15 tab Potassium Chloride [K-Dur 20] 20 meq PO DAILY #3 tab rifAXIMin [Xifaxan] 200 mg PO Q8 #21 tab - Follow Up Plan Condition: STABLE Disposition: HOME/ ROUTINE Instructions: Hypokalemia (DC), Metronidazole (Systemic), Dizziness, Nonvertigo , (DC), Fluconazole, Potassium Chloride, Rifaximin Referrals: Brodie Chong MD [Staff Provider] - Hugo Krishnamurthy MD [Staff Provider] -
== END 2017-09-18 17:19 | disposition home or self-care (01) | DRG 392 ==
LOC: C.ER 19:59 → C.9E 22:17 → C.3T 22:17 → OBSVTOIN 09-10 10:34 → C.3T 09-14 18:44
PROVIDERS: ADMIT Internal Medicine; ATTEND Internal Medicine
DX: K57.32 Diverticulitis of large intestine without perforation or abscess without bleeding (principal); S09.90XA Unspecified injury of head, initial encounter; K50.90 Crohn's disease, unspecified, without complications; B37.49 Other urogenital candidiasis; W19.XXXA Unspecified fall, initial encounter; E86.0 Dehydration; J44.9 Chronic obstructive pulmonary disease, unspecified; N18.9 Chronic kidney disease, unspecified; I12.9 Hypertensive chronic kidney disease with stage 1 through stage 4 chronic kidney disease, or unspecified chronic kidney disease; E87.6 Hypokalemia; E78.00 Pure hypercholesterolemia, unspecified; E03.9 Hypothyroidism, unspecified; E78.5 Hyperlipidemia, unspecified; T50.2X5A Adverse effect of carbonic-anhydrase inhibitors, benzothiadiazides and other diuretics, initial encounter; R42 Dizziness and giddiness; Z86.010 Personal history of colon polyps; Z90.49 Acquired absence of other specified parts of digestive tract; Z87.891 Personal history of nicotine dependence